=== PATIENT | male | born 1955 | race Caucasian/White ===

== ENCOUNTER 2016-11-08 08:40 | Inpatient (IN) ==
[2016-11-08] MEDS ORDERED: PANTOPRAZOLE 40 MG VIAL IV STA (09:05)
[2016-11-08] MEDS ORDERED: METOCLOPRAMIDE 10 MG/2 ML VIAL IV STA (09:05)
[2016-11-08] MEDS ORDERED: SODIUM CHLORIDE 0.9% 500 ML IV STA (09:05)
--- NOTE | 2016-11-08 09:11 | EKG Report ---
Stationary ECG Study [facility] ER Test Date: 11/08/2016 9:10:39 AM Pat Name: ZENA IRAHETA Department: Room: Gender: M Information Systems Coordinator: : 1955 Requested by: Kirk León Order Number: [id number] Reading MD: MORENITA ESPINO Intervals [place] Rate: 67 P: 65 FL: 191 QRS: 79 QRSD: 108 T: 74 QT: 393 QTc: 408 Interpretive Statements SINUS RHYTHM POSSIBLE INFERIOR MYOCARDIAL INFARCTION, PROBABLY OLD Electronically Signed On 11-12-16 17:07:19 CDT by MORENITA ESPINO [email or web address]
--- NOTE | 2016-11-08 09:11 | Emergency Department Note ---
Arrival - Arrival Chief Complaint: Syncope ED Nursing Triage Note: OUTPT SURGERY YESTERDAY FOR 3 TEETH EXTRACTED, PT HAD ? SYNCOPAL EPISODE, PT FELL INTO OR LEANED AGAINST A CABINET, PER EMS STAFF WAS UNABLE TO TELL IF PT ACTUALLY FELL TO THE FLOOR, NO OBVIOUS INJURIES, PER DETENTION STAFF PT LESS ACTIVE TODAY THAN NORMAL Mode of Arrival: Stretcher Limitations: Altered Mental Status Source: Family Time Seen by Provider: 11/08/16 09:04 - History of Present Illness HPI Narrative: This 61-year-old white male with severe brain damage secondary to complications at presents per the family with what is described to them [facility]. The patient was eating his breakfast when after completion he vomited up the meal and proceeded to rise to standing position when he apparently passed out. It is unclear if there was complete loss of consciousness although it was stated he hit his head on the floor. The patient although noncommunicative vocally he does describe by pointing that he does have some nausea and stomach pain. The patient has a notable recent history of major dental work yesterday including the extraction of 3 teeth. Because of his difficulty mentally, any cognizant history is impossible. Currently he appears in no acute distress medically other than he has a low blood pressure which is sustained since the incident. Onset (ago): hour(s) (Patient presents 2 hours post incident) Allergies/Adverse Reactions: Allergies Allergy/AdvReac Type Severity Reaction Status Date / Time No Known Allergies Allergy Unverified 11/07/16 06:33 Home Medications: Home Medications Medication Instructions Recorded Confirmed Type Cholecalciferol (Vitamin D3) 5,000 unit PO DAILY 10/15/16 11/08/16 History [Vitamin D3] Multivitamin [One Daily] 1 each PO DAILY 10/15/16 11/08/16 History Omeprazole [Prilosec] 20 mg PO DAILY 10/15/16 11/08/16 History LORazepam TAB [Ativan Tab] 1 mg PO ONCE 10/17/16 11/08/16 History Polyethylene Glycol Powder 17 gm PO BID 10/17/16 11/08/16 History [Miralax] Review of System - Review of System 12 point system: reviewed and no additional remarkable complaints except as stated - Review of System Gastrointestinal: Present: as per HPI Medical,Surgical,& Family Hx - Medical History Neurology: History of: Seizures HEENT: History of: Ear Problem (11/06/16 Sched for Dental Surgery Dr. Reeves), Eye Problem (BLIND) Gastrointestinal: History of: GERD Musculoskeletal: History of: Back/Neck Problems Other: History of: Miscellaneous Medical Problems (mental retardation r/t to series of traumas) - Surgical History Neurologic Surgeries: Surgical HX of: Neurologic Surgery (Craniotomy x2 as a baby) - Social History Smoking Status: Unknown if ever smoked Exam Physical Examination: GENERAL: Well developed, well nourished white male in no acute distress. HEENT: Normocephalic. No trauma. Moist mucous membranes. EOMI. PERRLA. ENT evidence of recent oral surgery NECK: Supple. No adenopathy. CARDIAC: Regular. No murmurs. Heart rate 73 CHEST: Clear to auscultation. No respiratory distress. O2 sat 99% ABDOMEN: Soft. Tender periumbilically with hypoactive bowel sounds. EXTREMITIES: No trauma. Normal ROM. No pedal edema. SKIN: No diaphoresis. No rash. NEURO: Alert. Noncommunicative. Full motion in all extremities with no focal deficits. Vital Signs: Vital Signs Temperature 97.0 F L 11/08/16 08:40 Pulse Rate 73 11/08/16 08:40 Respiratory Rate 16 11/08/16 08:40 Blood Pressure 85/53 11/08/16 08:40 O2 Sat by Pulse Oximetry 99 11/08/16 08:40 Course - Reevaluation(s) Reevaluation #1: Discussed with family need for hospitalization for further delineation of this individual situation. - Consultations Consultation #1: Discussed with hospitalist who will admit for further evaluation treatment. Results - Labs CBC & BMP: 11/08/16 09:05 11/08/16 09:05 Labs: I reviewed the lab and noted the mild pressure in hematocrit as well as elevated lactic acid. - Impressions EKG: Sinus rhythm at 87 with normal MO interval and QRS duration. Evidence of old inferior PA. No acute injury pattern noted. - Diagnostic Findings Procedure: Abdominal x-ray: image reviewed by me, report reviewed by me ( Nonspecific gas and feces), Chest x-ray: image reviewed by me, report reviewed by me (Normal chest), CT: image reviewed by me, report reviewed by me (Head: Chronic bilateral frontal hygromas, cerebral atrophy, prior right craniotomy, maxillary and ethmoid sinus disease.) Disposition Clinical Impression: Altered mental status, Transient hypotension, Complex advanced brain damage Case discussed with: patient's family Disposition: Still a Patient Condition: Guarded Time of Disposition: 12:09
--- NOTE | 2016-11-08 09:42 | CT Report ---
History: Syncope. Possible recent fall. History of remote brain injury Date: 11/08/2016 Study: CT head without contrast Comparison exam: No previous head CT currently available Transaxial CT sections were obtained through the head without IV contrast. Total DLP measures 1025.6 mGy*cm. This CT exam was performed using one or more the following dose reduction techniques: Automated exposure control, adjustment of the MA and/or KV according to patient size, or use of iterative reconstruction technique. There has been remote right frontoparietal craniotomy. There is no acute bony abnormality of the calvarium. There is moderate mucosal thickening in the left maxillary sinus with mild bilateral ethmoid sinus mucosal thickening as well. The mastoid air cells are clear. There is moderate cerebral atrophy, more so involving the right cerebral hemisphere as compared to the left. There is no parenchymal hemorrhage or brain mass. There is no gross CT evidence of acute cortical stroke. There is some patchy ill-defined decreased density in the periventricular white matter without mass effect compatible with changes of small vessel disease. There is some chronic subdural hygroma formation in the frontal regions bilaterally. There is no acute extra-axial hematoma. Impression: No acute intracranial process. Cerebral atrophy. Periventricular small vessel disease. Chronic bilateral frontal subdural hygroma formation. Remote craniotomy on the right. Chronic sinus disease PROCEDURE INTERPRETED AT [facility] DEPARTMENT OF RADIOLOGY Final Report Signed by: Dr. April Wallace
[2016-11-08 09:56] LABS: Basophils % 0.4 % (0.0-0.8); Eosinophils % 0.2 % (0.00-10.9); Hematocrit 35.3 VOL% (42.0-52.0); Hemoglobin 11.6 GM/DL (14.0-18.0); Immature Granulocytes % 0.6 %; Immature Granulocytes Absolute 0.05 #; Lymphocytes # 0.6 10*3/uL (1.4-4.0); Lymphocytes % 7.2 % (21.2-54.2); Mean Corpuscular HGB Conc 32.9 GM/DL (32-36); Mean Corpuscular Hemoglobin 31 PG (27-34); Mean Corpuscular Volume 95.4 FL (87-102); Mean Platelet Volume 10.3 FL (9.6-12.0); Monocytes # 0.7 10*3/uL (0.11-0.8); Monocytes % 8.7 % (1.7-12.7); Neutrophils # 6.9 10*3/uL (1.4-7.4); Neutrophils % 82.9 % (38.7-73.9); Platelet Count 150 T/CUMM (130-400); Red Cell Distribution Width 13.2 % (9.3-17.3); White Blood Count 8.4 T/CUMM (4-12)
--- NOTE | 2016-11-08 10:02 | XRay Report ---
History: Nausea, vomiting, diarrhea Date: 11/08/2016 Study: Flat and decubitus abdomen Comparison exam: Abdominal x-ray September 01, 2016 There is no evidence of pneumoperitoneum. The bowel gas pattern is nonspecific without jorgito mechanical obstruction. There is a moderate amount of stool in the colon, including a moderate amount of stool of the rectum. A phlebolith overlies the left hemipelvis. There is mild lumbar spondylosis. Impression: Nonspecific bowel gas pattern without jorgito obstruction PROCEDURE INTERPRETED AT [facility] DEPARTMENT OF RADIOLOGY Final Report Signed by: Dr. April Wallace
[2016-11-08 10:06] LABS: INR 1.1; PT Patient Result 12.1 SECS
--- NOTE | 2016-11-08 10:08 | XRay Report ---
History: Shortness of breath Date: 11/08/2016 Study: Chest x-ray single view portable Comparison exam: No previous chest x-ray available for comparison The cardiac silhouette is borderline to mildly prominent. There is no mediastinal mass. The pulmonary vasculature is not engorged. The lungs and pleural spaces are generally clear for shallow breath. There is a calcified right hilar lymph node. There is no acute osseous abnormality. Impression: No acute cardiopulmonary process. Shallow breath PROCEDURE INTERPRETED AT [facility] DEPARTMENT OF RADIOLOGY Final Report Signed by: Dr. April Wallace
[2016-11-08 10:29] LABS: Alanine Aminotransferase 20 U/L (16-61); Albumin 2.9 G/DL (3.4-5.0); Alkaline Phosphatase 57 U/L (45-117); Amylase 101 U/L (25-115); Aspartate Amino Transferase 20 U/L (0-37); Blood Urea Nitrogen 26 MG/DL (7-18); Calcium 8.2 MG/DL (8.5-10.1); Glucose 107 MG/DL (74-106); Osmolality,Calculated 281.5 MOS/KG (273-304); Potassium 3.7 MMOL/L (3.5-5.1); Sodium 139 MMOL/L (136-145); Troponin I Only < 0.015 NG/ML (0.00-0.045)
[2016-11-08] MEDS ORDERED: METOCLOPRAMIDE 10 MG/2 ML VIAL ONE (10:30)
[2016-11-08] MEDS ORDERED: PANTOPRAZOLE 40 MG VIAL IV ONE (10:30)
[2016-11-08 10:51] LABS: Lactic Acid 2.4 MMOL/L (0.4-2.0)
[2016-11-08 11:42] LABS: Amorphous Crystals,Urine Few /HPF (Few); Apearance,Urine CLOUDY (Clear); Bacteria,Urine Occasional /HPF (Few); Bilirubin,Urine Negative (Negative); Blood, Urine Negative (Negative); Glucose,Urine (UA) Negative (Negative); Hyaline Casts,Urine 3 /LPF (0-3); Ketones,Urine Negative (Negative); Mucus,Urine Occasional /LPF (Occasional); Nitrite,Urine Negative (Negative); Protein,Urine Negative; Sperm,Urine Occasional /HPF (Negative); Squamous Epithelial Cell,Urine Occasional /HPF (0-10); Urine Color Yellow (Yellow); Urine Specific Gravity 1.009 (1.001-1.035); Urine Urobilinogen < 2.0 EU/DL (0.2-1.0); WBC,Urine 1 /HPF (0-6)
[2016-11-08] MEDS ORDERED: ONDANSETRON 4 MG/2 ML VIAL IV PRN (12:26)
[2016-11-08] MEDS ORDERED: SODIUM CHLORIDE 0.9% 1,000 ML IV SCH (12:30)
[2016-11-08] MEDS ORDERED: ENOXAPARIN 40 MG/0.4 ML SYRINGE SUBCUT SCH (12:30)
--- NOTE | 2016-11-08 12:31 | Hospitalist History & Physical ---
<Sherri Owensda - Last Filed: 11/08/16 13:04> Assessment and Plan (1) Altered mental status, unspecified Status: Acute Assessment and plan: We will admit. Will perform syncope work-up, hydrate, and initiate seizure precautions. (2) Seizures Status: Acute Assessment and plan: Initiate seizure precautions, ativan PRN. Current Visit: Yes (3) Status post tooth extraction Status: Acute Assessment and plan: We will assess and medicate as needed. Will start Clindamycin prophylactically. Current Visit: Yes History of Present Illness Chief complaint: "syncope" History of present illness: This is a 61 year old male that presented to the ED today with a chief compliant of "syncope" and fall. He has a medical history of visual loss, acquired brain injury,seizure disorder, GERD, and mental retardation. The patient underwent recent multiple tooth extractions on yesterday by Dr. Leandro donato at [facility] surgery. The extractions were uneventful. The patient recovered well and was discharged back to his halfway. Apparently, the patient was eaten breakfast and wast attempting to leave the table when this occurred. The family was informed by the nursing staff that when the patient went to stand up he started to vomit and "passed out ". In addition, they reported that the patient did strike his head on the floor ; however they are unsure if an actual loss of consciouness occured. In addition , the family reported that staff informed them that the patient had behavioral issues on yesterday. They are concerned that the patient has remained altered; which is a not his baseline. The patient was assessed. Labs and chest radiograph were essentially unremarkable. CT scan of head revealed chronic bilateral frontal hygromas, cerebral atrophy, prior right craniotomy, maxillary and ethmoid sinus disease. Abdominal xray suggested nonspecific gas and feces. After discussion with Dr. Segovia and Dr. Lane, the patient will be admitted for continuation of care. Home Medications Medication Instructions Recorded Confirmed Type Cholecalciferol (Vitamin D3) 5,000 unit PO DAILY 10/15/16 11/08/16 History [Vitamin D3] Multivitamin [One Daily] 1 each PO DAILY 10/15/16 11/08/16 History Omeprazole [Prilosec] 20 mg PO DAILY 10/15/16 11/08/16 History LORazepam TAB [Ativan Tab] 1 mg PO ONCE 10/17/16 11/08/16 History Polyethylene Glycol Powder 17 gm PO BID 10/17/16 11/08/16 History [Miralax] Allergies Allergy/AdvReac Type Severity Reaction Status Date / Time No Known Allergies Allergy Unverified 11/07/16 06:33 Medical,Surgical,& Family Hx - Medical History Neurology: History of: Seizures HEENT: History of: Ear Problem (11/06/[address] Sched [address] Dental Surgery Dr. Reeves), Eye Problem (BLIND) Gastrointestinal: History of: GERD Musculoskeletal: History of: Back/Neck Problems Other: History of: Miscellaneous Medical Problems (mental retardation r/t to series of traumas) - Surgical History Neurologic Surgeries: Surgical HX of: Neurologic Surgery (Craniotomy x2 as a baby) - Social History Smoking Status: Unknown if ever smoked ROS unobtainable: due to mental status Exam - Constitutional Vitals: Period Temp Pulse Resp BP Sys/T[place]ilver Pulse Ox Last 24 Hr 97.0 F 73 16 85/53 99 General appearance: normal weight, mild distress - Head Head exam: Present: normal inspection, normocephalic, atraumatic - Eye Eye exam: Present: EOMI. Absent: conjunctival injection, nystagmus, periorbital swelling, scleral icterus Pupils: Present: PETER, normal accommodation - ENT ENT exam: Present: normal exam, normal external ear exam, normal oropharynx - Neck Neck exam: Present: normal inspection. Absent: lymphadenopathy, meningismus, tenderness, thyromegaly - Respiratory Respiratory exam: Present: clear to auscultation bilaterally. Absent: rales, rhonchi, stridor, wheezes - Cardiovascular Cardiovascular exam: Present: regular rate and rhythm. Absent: carotid bruit, diastolic murmur, gallop, JVD, rubs, systolic murmur - GI/Abdominal GI/Abdominal exam: Present: tenderness, soft - Extremities Exam Extremities exam: Present: normal inspection, normal capillary refill, full ROM - Back Exam Back exam: Present: normal inspection - Neurological Exam Neurological exam: Present: alert, altered, other (non-verbal) - Psychiatric Psychiatric exam: Present: normal affect, normal mood - Skin Skin exam: Present: normal color, warm, dry Results - Labs CBC & BMP: 11/08/16 09:05 11/08/16 09:05 Lab Results: I have reviewed the past 24 hour labs <James Lane - Last Filed: 11/08/16 15:48> History of Present Illness History of present illness: Mr. Dillon is a 61 year old male Personally seen this patient patient was examined in the emergency room as well as in the room of tachypnea. The patient came to the hospital with a syncopal episode with a history of "" seizures for which she is only taking Ativan. I am not certain whether this is feet seizures however when I came into the room is sleeping a cannot wake him up. I agree with all the documentation that is above we will continue with the recommendations as he also chimed in by the neurologist. Observe the patient at this time patient should be on telemetry just and also chance he gets arrhythmias. Exam - Constitutional Vitals: Period Temp Pulse Resp BP Sys/Tolliver Pulse Ox Last 24 Hr 97 F-98.4 F 13-77 16-18 85-113/53-66 97 Results - Labs CBC & BMP: 11/08/16 09:05 11/08/16 09:05
[2016-11-08] MEDS ORDERED: CLINDAMYCIN INJ 600 MG in PREMIX 1 EACH IV ONE (13:07)
[2016-11-08] MEDS ORDERED: LORazepam 2 MG/1 ML VIAL IV PRN (13:07)
--- NOTE | 2016-11-08 14:00 | Neurology Consult Note ---
History of Present Illness History of present illness: Patient is unable to provide me any history. History basically obtained from the chart and the caregiver. This is a 61 year old white gentleman with past medical history of visual loss, acquired brain injury,seizure disorder, GERD, and mental retardation that presented to the ED today with a chief compliant of "syncope" and fall. The patient underwent recent multiple tooth extractions yesterday at [facility] Outpatient surgery. The extractions were uneventful. The patient recovered well and was discharged back to his long term. Apparently, the patient was eaten breakfast and wast attempting to leave the table when this occurred. The family was informed by the nursing staff that when the patient went to stand up he started to vomit and "passed out" and possibly hit his head on the floor. It is not clear whether he completely went out or not. In addition, the family reported that staff informed them that the patient had behavioral issues on yesterday. They are concerned that the patient has remained altered; which is a not his baseline. CT scan of head revealed chronic bilateral frontal hygromas, cerebral atrophy, prior right craniotomy, maxillary and ethmoid sinus disease. Caregiver reported that patient is pretty much back to his baseline at this point. Home Medications Medication Instructions Recorded Confirmed Type Cholecalciferol (Vitamin D3) 5,000 unit PO DAILY 10/15/16 11/08/16 History [Vitamin D3] Multivitamin [One Daily] 1 each PO DAILY 10/15/16 11/08/16 History Omeprazole [Prilosec] 20 mg PO DAILY 10/15/16 11/08/16 History LORazepam TAB [Ativan Tab] 1 mg PO ONCE 10/17/16 11/08/16 History Polyethylene Glycol Powder 17 gm PO BID 10/17/16 11/08/16 History [Miralax] Allergies Allergy/AdvReac Type Severity Reaction Status Date / Time No Known Allergies Allergy Unverified 11/07/16 06:33 12 point system: reviewed and no additional remarkable complaints except as stated Medical,Surgical,& Family Hx - Medical History Neurology: History of: Seizures HEENT: History of: Ear Problem (11/06/16 Sched for Dental Surgery Dr. Reeves), Eye Problem (BLIND) Gastrointestinal: History of: GERD Musculoskeletal: History of: Back/Neck Problems Other: History of: Miscellaneous Medical Problems (mental retardation r/t to series of traumas) - Surgical History Neurologic Surgeries: Surgical HX of: Neurologic Surgery (Craniotomy x2 as a baby) - Social History Smoking Status: Unknown if ever smoked Exam - Constitutional Vitals: Period Temp Pulse Resp BP Sys/Tolliver Pulse Ox Last 24 Hr 97 F-98.4 F 13-77 16-18 85-113/53-66 97 Exam: GENERAL: Patient is in no acute distress. NECK: Neck is supple. There is no JVD. No carotid bruits present. No thyroid masses. CVS: First and second heart sounds are normal. There is no S3 present. Regular rate and rhythm. RESPIRATORY: Lungs are clear to auscultation without any rales or rhonchi. ABDOMEN: Soft and non-tender. Bowel sounds are present. There is no hepatosplenomegaly. EXT: There is no palpable edema. Peripheral pulses are present. Skin: No rashes Central Nervous system: General: Alert, awake, following very simple commands Speech: None Comprehension: Fair Facial expressions: Normal Cranial Nerves: Pupils are equally reactive to light. Extraocular movements are intact. No facial asymmetry is seen. Motor: Bulk and Tone is normal. Strength symmetrical Sensory: Cannot be assessed. Reflexes: 1+ and symmetrical Cerebellar function: Cannot be assessed Toes: Equivocal Gait: Not assessed at this time Results - Labs CBC & BMP: 11/08/16 09:05 11/08/16 09:05 Assessment and Plan (1) Near syncope Status: Acute Assessment and plan: It could be multifactorial. I do not see any clear evidence of a stroke, TIAs, epilepsy or seizure. It is in the history that patient had a history of seizure however he is not on any seizure medication either. It looks like patient is back to his baseline as per long term caregiver. We will continue watchful observation at this time. Thank you for the count Current Visit: Yes
[2016-11-09 04:35] LABS: Basophils % 0.4 % (0.0-0.8); Eosinophils # 0.1 10*3/uL (0.0-0.87); Eosinophils % 1.8 % (0.00-10.9); Hematocrit 29.7 VOL% (42.0-52.0); Hemoglobin 9.9 GM/DL (14.0-18.0); Immature Granulocytes % 0.1 %; Immature Granulocytes Absolute 0.01 #; Lymphocytes # 1.8 10*3/uL (1.4-4.0); Lymphocytes % 26.2 % (21.2-54.2); Mean Corpuscular HGB Conc 33.3 GM/DL (32-36); Mean Corpuscular Hemoglobin 31 PG (27-34); Mean Corpuscular Volume 92.5 FL (87-102); Mean Platelet Volume 10.5 FL (9.6-12.0); Monocytes # 0.8 10*3/uL (0.11-0.8); Neutrophils % 59.5 % (38.7-73.9); Platelet Count 142 T/CUMM (130-400); Red Blood Count 3.21 MC/CUMM (3.8-5.5); Red Cell Distribution Width 13.4 % (9.3-17.3); White Blood Count 6.7 T/CUMM (4-12)
[2016-11-09 05:35] LABS: Albumin 2.6 G/DL (3.4-5.0); Bilirubin,Total 0.9 MG/DL (0.2-1.0); Calcium 7.9 MG/DL (8.5-10.1); Magnesium 1.8 MG/DL (1.8-2.4); Potassium 4.1 MMOL/L (3.5-5.1); Risk Ratio 2.29; Thyroid Stimulating Hormone 0.652 uIU/ml (0.358-3.74); Total Protein 5.2 G/DL (6.4-8.3)
[2016-11-09] MEDS ORDERED: PANTOPRAZOLE 40 MG TABLET PO SCH (09:00)
[2016-11-09] MEDS ORDERED: PANTOPRAZOLE 40 MG VIAL IV SCH (09:00)
--- NOTE | 2016-11-09 09:57 | Discharge Summary ---
Hospital Course - Hospital Course Hospital Course: This is a 61 year old male that presented to the ED at [facility] on 11/08 with a chief compliant of "syncope" and fall. He has a medical history of visual loss, acquired brain injury,seizure disorder, GERD, and mental retardation. The patient underwent recent multiple tooth extractions on 11/[address] Leandro solo at [facility] Outpatient surgery. The extractions were uneventful. The patient recovered well and was [facility] to his [facility]. Apparently, the patient was eating breakfast at the [facility] on yesterday. He was attempting to leave the table when the presenting episode occurred. The family was informed by the nursing staff that when the patient went to stand up he started to vomit and "passed out ". In addition, they reported that the patient did strike his head on the floor ; however they are unsure if an actual loss of consciousness occurred. In addition, the family reported that staff informed them that the patient had behavioral issues on yesterday. They are concerned that the patient has remained altered; which is a not his baseline. The patient was assessed. Labs and chest radiograph were essentially unremarkable. CT scan of head revealed chronic bilateral frontal hygromas, cerebral atrophy, prior right craniotomy, maxillary and ethmoid sinus disease. Abdominal xray suggested nonspecific gas and feces. After discussion with Dr. Segovia and Dr. Lane, the patient was admitted for further evaluation. The patient was admitted and re-hydrated. A neurology consult was requested. The patient was seen and evaluated per Neurology. They concluded that the source of his "syncope"could be multifactorial. In addition, Neurology concluded that there was no clear evidence of any neurological events such as cerebral vascular accident, transient ischemic attack, epilepsy, or seizure. The patient's mentation has improved. According to [facility] staff who are present at bedside; he has returned to his baseline. His condition is stable. Today, we feel that his condition has improved. He is appropriate for discharge back to his group with follow-up with his PCP as indicated. Diagnosis - Discharge Diagnosis (1) Altered mental status, unspecified Status: Acute (2) Seizures Status: Acute (3) Status post tooth extraction Status: Acute Discharge Plan - Discharge Medications No Action Multivitamin [One Daily] 1 each PO DAILY Cholecalciferol (Vitamin D3) [Vitamin D3] 5,000 unit PO DAILY Omeprazole [Prilosec] 20 mg PO DAILY Polyethylene Glycol Powder [Miralax] 17 gm PO BID LORazepam TAB [Ativan Tab] 1 mg PO ONCE - Follow Up or Referral - Forms/Instructions Exam - Constitutional Vitals: Period Temp Pulse Resp BP Sys/Tolliver Pulse Ox Last 24 Hr 97 F-99.4 F 13-90 16-20 85-149/53-89 96-99 Discharge Results Labs on day of discharge: Labs from last 24 hours 11/09/16 11/09/16 04:12 04:12 WBC 6.7 RBC 3.21 L Hgb 9.9 L Hct 29.7 L MCV 92.5 MCH 31 MCHC 33.3 RDW 13.4 Plt Count 142 MPV 10.5 Neut % (Auto) 59.5 Lymph % (Auto) 26.2 Kimble % (Auto) 12.0 Eos % (Auto) 1.8 Baso % (Auto) 0.4 Neut # (Auto) 4.0 Lymph # (Auto) 1.8 Kimble # (Auto) 0.8 Eos # (Auto) 0.1 Baso # (Auto) 0.0 Immature Gran % 0.1 Nucleated RBC % 0.0 Immature Gran # 0.01 Nucleated RBCs # 0.00 Sodium 143 Potassium 4.1 Chloride 112 H Carbon Dioxide 23 Anion Gap 12.1 BUN 21 H Creatinine 0.90 GFR Calculation 93 BUN/Creatinine Ratio 23.00 H Glucose 83 Calculated Osmolality 286.0 Calcium 7.9 L Magnesium 1.8 Total Bilirubin 0.90 AST 18 ALT 17 Alkaline Phosphatase 46 Total Protein 5.2 L Albumin 2.6 L Globulin 2.6 Albumin/Globulin Ratio 1.0 L Triglycerides 70 Cholesterol 135 LDL Cholesterol 68.0 VLDL Cholesterol 14.0 HDL Cholesterol 59 Heart Disease Risk Ratio 2.29 TSH 3rd Generation 0.652 DS: Provider Date of admission: 11/08/16 12:23 Primary care physician: . No PCP Attending physician on admission: James Lane MD Consults: 11/08/16 12:26 Consult to Physician [CONS] Routine Comment: Consulting Provider: Ray Morgan When should Consulting Provider be notified: Now Person Notified: Dr. morgan Date Notified: 11/08/16 Time Notified: 13:51 11/08/16 12:30 Consult to Pharmacy [CONS] Routine Reason for Pharmacy Consult: Adjust Meds Renal Funct 11/08/16 13:46 Consult to Pastoral Services [CONS] Routine Comment: Pastoral Screen: Declines Visit Pastoral Screen Source of Request: Patient Discharging clinician: Jamie Owens CNP
--- NOTE | 2016-11-09 10:29 | Discharge Summary ---
Hospital Course - Hospital Course Hospital Course: Hospital Course - Hospital Course Hospital Course: This is a 61 year old male that presented to the ED at [facility] on 11/08 with a chief compliant of "syncope" and fall. He has a medical history of visual loss, acquired brain injury,seizure disorder, GERD, and mental retardation. The patient underwent recent multiple tooth extractions on 11/[address] Leandro solo at [facility] Outpatient surgery. The extractions were uneventful. The patient recovered well and was discharged back to his assisted. Apparently, the patient was eating breakfast at the assisted on yesterday. He was attempting to leave the table when the presenting episode occurred. The family was informed by the nursing staff that when the patient went to stand up he started to vomit and "passed out ". In addition, they reported that the patient did strike his head on the floor ; however they are unsure if an actual loss of consciousness occurred. In addition, the family reported that staff informed them that the patient had behavioral issues on yesterday. They are concerned that the patient has remained altered; which is a not his baseline. The patient was assessed. Labs and chest radiograph were essentially unremarkable. CT scan of head revealed chronic bilateral frontal hygromas, cerebral atrophy, prior right craniotomy, maxillary and ethmoid sinus disease. Abdominal xray suggested nonspecific gas and feces. After discussion with Dr. Segovia and Dr. Lane, the patient was admitted for further evaluation. The patient was admitted and re-hydrated. A neurology consult was requested. The patient was seen and evaluated per Neurology. They concluded that the source of his "syncope"could be multifactorial. In addition, Neurology concluded that there was no clear evidence of any neurological events such as cerebral vascular accident, transient ischemic attack, epilepsy, or seizure. The patient's mentation has improved. According to assisted staff who are present at bedside; he has returned to his baseline. His condition is stable. Today, we feel that his condition has improved. He is appropriate for discharge back to his group with follow-up with his PCP as indicated. Diagnosis - Discharge Diagnosis (1) Altered mental status, unspecified Status: Acute (2) Seizures Status: Acute (3) Status post tooth extraction Status: Acute Discharge Plan - Discharge Medications No Action Multivitamin [One Daily] 1 each PO DAILY Cholecalciferol (Vitamin D3) [Vitamin D3] 5,000 unit PO DAILY Omeprazole [Prilosec] 20 mg PO DAILY Polyethylene Glycol Powder [Miralax] 17 gm PO BID LORazepam TAB [Ativan Tab] 1 mg PO ONCE - Follow Up or Referral - Forms/Instructions Exam - Constitutional Vitals: Period Temp Pulse Resp BP Sys/Tolliver Pulse Ox Last 24 Hr 97 F-99.4 F 13-90 16-20 85-149/53-89 96-99 Discharge Results Labs on day of discharge: Labs from last 24 hours 11/09/16 11/09/16 04:12 04:12 WBC 6.7 RBC 3.21 L Hgb 9.9 L Hct 29.7 L MCV 92.5 MCH 31 MCHC 33.3 RDW 13.4 Plt Count 142 MPV 10.5 Neut % (Auto) 59.5 Lymph % (Auto) 26.2 Florence % (Auto) 12.0 Eos % (Auto) 1.8 Baso % (Auto) 0.4 Neut # (Auto) 4.0 Lymph # (Auto) 1.8 Florence # (Auto) 0.8 Eos # (Auto) 0.1 Baso # (Auto) 0.0 Immature Gran % 0.1 Nucleated RBC % 0.0 Immature Gran # 0.01 Nucleated RBCs # 0.00 Sodium 143 Potassium 4.1 Chloride 112 H Carbon Dioxide 23 Anion Gap 12.1 BUN 21 H Creatinine 0.90 GFR Calculation 93 BUN/Creatinine Ratio 23.00 H Glucose 83 Calculated Osmolality 286.0 Calcium 7.9 L Magnesium 1.8 Total Bilirubin 0.90 AST 18 ALT 17 Alkaline Phosphatase 46 Total Protein 5.2 L Albumin 2.6 L Globulin 2.6 Albumin/Globulin Ratio 1.0 L Triglycerides 70 Cholesterol 135 LDL Cholesterol 68.0 VLDL Cholesterol 14.0 HDL Cholesterol 59 Heart Disease Risk Ratio 2.29 TSH 3rd Generation 0.652 DS: Provider Date of admission: 11/08/16 12:23 Primary care physician: . No PCP Attending physician on admission: James Lane MD Consults: 11/08/16 12:26 Consult to Physician [CONS] Routine Comment: Consulting Provider: Ray Morgan When should Consulting Provider be notified: Now Person Notified: Dr. morgan Date Notified: 11/08/16 Time Notified: 13:51 11/08/16 12:30 Consult to Pharmacy [CONS] Routine Reason for Pharmacy Consult: Adjust Meds Renal Funct 11/08/16 13:46 Consult to Pastoral Services [CONS] Routine Comment: Pastoral Screen: Declines Visit Pastoral Screen Source of Request: Patient Discharging clinician: Jamie Owens CNP Discharge Plan - Discharge Data Disposition: Disch/Xfer to Snf Condition at Discharge: Stable Discharge Diet: heart healthy Activity: resume usual activities as tolerated Hygiene: no restrictions Weight Bearing at Discharge: weight bear as tolerated Driving: other (No driving) Contact your physician if you experience:: fever over 101, Shortness of breath - Discharge Medications Continue Multivitamin [One Daily] 1 each PO DAILY Cholecalciferol (Vitamin D3) [Vitamin D3] 5,000 unit PO DAILY Omeprazole [Prilosec] 20 mg PO DAILY Polyethylene Glycol Powder [Miralax] 17 gm PO BID LORazepam TAB [Ativan Tab] 1 mg PO ONCE - Follow Up or Referral - Forms/Instructions Exam - Constitutional Vitals: Period Temp Pulse Resp BP Sys/Tolliver Pulse Ox Last 24 Hr 97 F-99.4 F 13- 16-20 85-149/53-89 96-99 General appearance: normal weight - Head Head exam: Present: normocephalic, atraumatic - Eye Eye exam: Present: EOMI Pupils: Present: PETER - ENT ENT exam: Present: normal exam - Neck Neck exam: Present: normal inspection - Respiratory Respiratory exam: Present: clear to auscultation bilaterally - Cardiovascular Cardiovascular exam: Present: regular rate and rhythm - GI/Abdominal GI/Abdominal exam: Present: normal bowel sounds, soft - Extremities Exam Extremities exam: Present: full ROM, other (Normal capillary refill) - Neurological Exam Neurological exam: Present: alert, oriented X3, CN II-XII intact, other (Poor cognitive output 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 ) - Psychiatric Psychiatric exam: Present: other (Baseline) - Skin Skin exam: Present: normal color, warm, dry Discharge Results Labs on day of discharge: Labs from last 24 hours 11/09/16 11/09/16 04:12 04:12 WBC 6.7 RBC 3.21 L Hgb 9.9 L Hct 29.7 L MCV 92.5 MCH 31 MCHC 33.3 RDW 13.4 Plt Count 142 MPV 10.5 Neut % (Auto) 59.5 Lymph % (Auto) 26.2 Florence % (Auto) 12.0 Eos % (Auto) 1.8 Baso % (Auto) 0.4 Neut # (Auto) 4.0 Lymph # (Auto) 1.8 Florence # (Auto) 0.8 Eos # (Auto) 0.1 Baso # (Auto) 0.0 Immature Gran % 0.1 Nucleated RBC % 0.0 Immature Gran # 0.01 Nucleated RBCs # 0.00 Sodium 143 Potassium 4.1 Chloride 112 H Carbon Dioxide 23 Anion Gap 12.1 BUN 21 H Creatinine 0.90 GFR Calculation 93 BUN/Creatinine Ratio 23.00 H Glucose 83 Calculated Osmolality 286.0 Calcium 7.9 L Magnesium 1.8 Total Bilirubin 0.90 AST 18 ALT 17 Alkaline Phosphatase 46 Total Protein 5.2 L Albumin 2.6 L Globulin 2.6 Albumin/Globulin Ratio 1.0 L Triglycerides 70 Cholesterol 135 LDL Cholesterol 68.0 VLDL Cholesterol 14.0 HDL Cholesterol 59 Heart Disease Risk Ratio 2.29 TSH 3rd Generation 0.652 DS: Provider Date of admission: 11/08/16 12:23 Primary care physician: . No PCP Attending physician on admission: James Lane MD Consults: 11/08/16 12:26 Consult to Physician [CONS] Routine Comment: Consulting Provider: Ray Morgan When should Consulting Provider be notified: Now Person Notified: Dr. morgan Date Notified: 11/08/16 Time Notified: 13:51 11/08/16 12:30 Consult to Pharmacy [CONS] Routine Reason for Pharmacy Consult: Adjust Meds Renal Funct 11/08/16 13:46 Consult to Pastoral Services [CONS] Routine Comment: Pastoral Screen: Declines Visit Pastoral Screen Source of Request: Patient Discharging clinician: James Lane MD
[2016-11-09 11:40] VITALS: BP 146/82
== END 2016-11-09 12:31 | disposition home or self-care (01) | DRG 312 ==
LOC: EDBD → EDUNIT# → N.ED 08:40 → N.EDINP 12:23 → N.2E 13:00
PROVIDERS: ADMIT Internal Medicine Infectious Disease; ATTEND Internal Medicine Infectious Disease

== ENCOUNTER 2018-07-22 14:27 | Inpatient (IN) ==
[2018-07-22 16:35] LABS: Apearance,Urine CLEAR (Clear); Bacteria,Urine Occasional /HPF (Few); Bilirubin,Urine Negative (Negative); Blood, Urine Negative (Negative); Glucose,Urine (UA) Negative (Negative); Hyaline Casts,Urine 1 /LPF (0-3); Ketones,Urine Negative (Negative); Mucus,Urine Occasional /LPF (Occasional); Nitrite,Urine Negative (Negative); Protein,Urine Negative; RBC,Urine 1 /HPF (0-4); Urine Color Yellow (Yellow); Urine Urobilinogen < 2.0 EU/DL (0.2-1.0); WBC,Urine <1 /HPF (0-6)
[2018-07-22 17:07] LABS: Basophils # 0.1 10*3/uL (0.0-0.2); Basophils % 1.1 % (0.0-0.8); Eosinophils # 0.2 10*3/uL (0.0-0.87); Eosinophils % 3.9 % (0.00-10.9); Hematocrit 35.7 VOL% (42.0-52.0); Hemoglobin 11.9 GM/DL (14.0-18.0); Immature Granulocytes % 0.2 %; Immature Granulocytes Absolute 0.01 #; Lymphocytes # 1.8 10*3/uL (1.4-4.0); Lymphocytes % 33.6 % (21.2-54.2); Mean Corpuscular HGB Conc 33.3 GM/DL (32-36); Mean Corpuscular Hemoglobin 31 PG (27-34); Mean Corpuscular Volume 93.9 FL (87-102); Mean Platelet Volume 10.7 FL (9.6-12.0); Monocytes # 0.6 10*3/uL (0.11-0.8); Monocytes % 10.8 % (1.7-12.7); Neutrophils # 2.7 10*3/uL (1.4-7.4); Neutrophils % 50.4 % (38.7-73.9); Platelet Count 192 T/CUMM (130-400); Red Cell Distribution Width 13.2 % (9.3-17.3); White Blood Count 5.4 T/CUMM (4-12)
[2018-07-22 17:33] LABS: Albumin 3.8 G/DL (3.4-5.0); Bilirubin,Total 0.5 MG/DL (0.2-1.0); Calcium 8.7 MG/DL (8.5-10.1); Osmolality,Calculated 275.7 MOS/KG (273-304); Potassium 4.2 MMOL/L (3.5-5.1); Total Protein 7.3 G/DL (6.4-8.3)
[2018-07-22] MEDS: ENOXAPARIN 40 MG/0.4 ML SYRINGE SUBCUT SCH (22:20)
[2018-07-22] MEDS: SODIUM CHLORIDE 0.9% 1,000 ML IV SCH (22:30)
[2018-07-22] MEDS: ZIPRASIDONE 20 MG/1 ML VIAL IM PRN (22:53)
[2018-07-23] MEDS: SODIUM CHLORIDE 0.9% 1,000 ML IV SCH ×4 (03:50→22:21)
[2018-07-23 05:35] LABS: Basophils # 0.1 10*3/uL (0.0-0.2); Basophils % 1.1 % (0.0-0.8); Eosinophils # 0.2 10*3/uL (0.0-0.87); Eosinophils % 4.8 % (0.00-10.9); Hematocrit 33.9 VOL% (42.0-52.0); Hemoglobin 11.2 GM/DL (14.0-18.0); Immature Granulocytes % 0.2 %; Immature Granulocytes Absolute 0.01 #; Lymphocytes # 1.4 10*3/uL (1.4-4.0); Lymphocytes % 31.1 % (21.2-54.2); Mean Corpuscular Hemoglobin 31 PG (27-34); Mean Corpuscular Volume 94.4 FL (87-102); Mean Platelet Volume 10.6 FL (9.6-12.0); Monocytes # 0.5 10*3/uL (0.11-0.8); Monocytes % 12.3 % (1.7-12.7); Neutrophils # 2.2 10*3/uL (1.4-7.4); Neutrophils % 50.5 % (38.7-73.9); Platelet Count 168 T/CUMM (130-400); Red Blood Count 3.59 MC/CUMM (3.8-5.5); Red Cell Distribution Width 13.1 % (9.3-17.3); White Blood Count 4.4 T/CUMM (4-12)
[2018-07-23 05:58] LABS: Calcium 8.4 MG/DL (8.5-10.1); Osmolality,Calculated 280.3 MOS/KG (273-304); Potassium 3.9 MMOL/L (3.5-5.1)
[2018-07-23] MEDS ORDERED: LIDOCAINE 2% 5 ML VIAL ONE (10:54)
[2018-07-23] MEDS ORDERED: PROPOFOL 200 MG/20 ML VIAL IV ONE ×2 (10:54→17:07)
[2018-07-23] MEDS ORDERED: metroNIDAZOLE INJ 500 MG in PREMIX 1 EACH IV ONE (11:44)
[2018-07-23] MEDS: ZIPRASIDONE 20 MG/1 ML VIAL IM PRN ×2 (11:50→18:08)
[2018-07-23] MEDS ORDERED: LIDOCAINE 1%/EPI INJ 20 ML VIAL ONE (12:11)
[2018-07-23] MEDS ORDERED: TISSUE ADHESIVE 1 EACH APPLICATOR TOP ONE (12:12)
[2018-07-23] MEDS ORDERED: ROPIVACAINE 0.5% 30 ML VIAL ONE (16:09)
[2018-07-23] MEDS ORDERED: fentaNYL 100 MCG/2 ML VIAL ONE ×2 (17:08→17:22)
[2018-07-23] MEDS ORDERED: SEVOFLURANE 1 UNIT/15 MINUTE INH ONE (17:08)
[2018-07-23] MEDS ORDERED: MIDAZOLAM 2 MG/2 ML VIAL ONE (17:08)
[2018-07-23] MEDS ORDERED: PHENYLEPHRINE 1 MG/10 ML SYRINGE IV ONE (17:10)
[2018-07-23] MEDS ORDERED: GLYCOPYRROLATE 0.4 MG/2 ML VIAL ONE (17:10)
[2018-07-23] MEDS ORDERED: ROCURONIUM 100 MG/10 ML VIAL IV ONE (17:10)
[2018-07-23] MEDS ORDERED: ONDANSETRON 4 MG/2 ML VIAL ONE (17:10)
[2018-07-23] MEDS ORDERED: NEOSTIGMINE 10 MG/10 ML VIAL ONE (17:10)
[2018-07-23] MEDS ORDERED: fentaNYL 100 MCG/2 ML VIAL IV ONE (18:09)
[2018-07-23 18:10] LABS: Apearance,Urine CLEAR (Clear); Bilirubin,Urine Negative (Negative); Blood, Urine Negative (Negative); Glucose,Urine (UA) Negative (Negative); Ketones,Urine Negative (Negative); Nitrite,Urine Negative (Negative); Protein,Urine Negative; RBC,Urine 1 /HPF (0-4); Urine Color Yellow (Yellow); Urine Specific Gravity 1.016 (1.001-1.035); Urine Urobilinogen < 2.0 EU/DL (0.2-1.0); WBC,Urine 1 /HPF (0-6)
[2018-07-23] MEDS: ENOXAPARIN 40 MG/0.4 ML SYRINGE SUBCUT SCH (20:05)
[2018-07-24] MEDS: HYDROmorphone 2 MG/1 ML VIAL IV PRN ×2 (03:30→21:15)
[2018-07-24] MEDS: SODIUM CHLORIDE 0.9% 1,000 ML IV SCH (06:19)
[2018-07-24 06:22] LABS: Basophils % 0.1 % (0.0-0.8); Hematocrit 33.5 VOL% (42.0-52.0); Hemoglobin 10.8 GM/DL (14.0-18.0); Immature Granulocytes % 0.4 %; Immature Granulocytes Absolute 0.04 #; Lymphocytes # 0.3 10*3/uL (1.4-4.0); Lymphocytes % 3.3 % (21.2-54.2); Mean Corpuscular HGB Conc 32.2 GM/DL (32-36); Mean Corpuscular Hemoglobin 31 PG (27-34); Mean Corpuscular Volume 95.7 FL (87-102); Mean Platelet Volume 10.7 FL (9.6-12.0); Monocytes # 0.5 10*3/uL (0.11-0.8); Monocytes % 5.4 % (1.7-12.7); Neutrophils # 8.1 10*3/uL (1.4-7.4); Neutrophils % 90.8 % (38.7-73.9); Platelet Count 157 T/CUMM (130-400); Red Cell Distribution Width 13.2 % (9.3-17.3); White Blood Count 8.9 T/CUMM (4-12)
[2018-07-24 06:43] LABS: Albumin 2.5 G/DL (3.4-5.0); Osmolality,Calculated 283.4 MOS/KG (273-304); Potassium 4.3 MMOL/L (3.5-5.1); Total Protein 5.7 G/DL (6.4-8.3)
[2018-07-24 06:54] LABS: Band Neutrophils 1 % (0-10); Lymphocytes 7 % (20-55); Metamyelocytes 1 %; Platelet Estimate Decreased; Polychromasia Few; Segmented Neutrophils 90 % (50-85); Total Cells Counted 100
[2018-07-24] MEDS: ZIPRASIDONE 20 MG/1 ML VIAL IM PRN (12:54)
[2018-07-24] MEDS: ENOXAPARIN 40 MG/0.4 ML SYRINGE SUBCUT SCH (20:58)
[2018-07-24] MEDS: DEXT 5% NACL 0.45% KCL 40 MEQ 40 MEQ/1,000 ML BAG IV SCH (22:24)
[2018-07-25] MEDS: HYDROmorphone 2 MG/1 ML VIAL IV PRN ×2 (02:00→05:18)
[2018-07-25] MEDS: DEXT 5% NACL 0.45% KCL 40 MEQ 40 MEQ/1,000 ML BAG IV SCH (05:20)
[2018-07-25 05:53] LABS: Basophils % 0.2 % (0.0-0.8); Eosinophils % 0.2 % (0.00-10.9); Hematocrit 33.7 VOL% (42.0-52.0); Immature Granulocytes % 0.4 %; Immature Granulocytes Absolute 0.04 #; Lymphocytes # 1.1 10*3/uL (1.4-4.0); Lymphocytes % 10.8 % (21.2-54.2); Mean Corpuscular HGB Conc 32.6 GM/DL (32-36); Mean Corpuscular Hemoglobin 31 PG (27-34); Mean Platelet Volume 10.6 FL (9.6-12.0); Monocytes # 0.6 10*3/uL (0.11-0.8); Monocytes % 5.9 % (1.7-12.7); Neutrophils # 8.1 10*3/uL (1.4-7.4); Neutrophils % 82.5 % (38.7-73.9); Platelet Count 148 T/CUMM (130-400); Red Blood Count 3.51 MC/CUMM (3.8-5.5); Red Cell Distribution Width 13.4 % (9.3-17.3); White Blood Count 9.8 T/CUMM (4-12)
[2018-07-25 06:34] LABS: Osmolality,Calculated 275.7 MOS/KG (273-304); Potassium 4.5 MMOL/L (3.5-5.1)
[2018-07-25] MEDS ORDERED: ALBUTEROL/IPRATROPIUM 3 ML NEB RESP TX STA (08:15)
[2018-07-25] MEDS ORDERED: LEVOFLOXACIN INJ 500 MG in PREMIX 1 EACH IV ONE (08:16)
[2018-07-25] MEDS ORDERED: FUROSEMIDE 40 MG/4 ML VIAL IV ONE (08:16)
[2018-07-25] MEDS ORDERED: LORazepam 2 MG/1 ML VIAL IV ONE (08:29)
[2018-07-25] MEDS ORDERED: LORazepam 2 MG/1 ML VIAL ONE (08:30)
[2018-07-25] MEDS ORDERED: PIPERACILLIN/TAZOBACTAM 3,375 MG in SODIUM CHLORIDE 0.9% 100 ML IV SCH (12:00)
[2018-07-25] MEDS: ALBUTEROL/IPRATROPIUM 3 ML NEB RESP TX SCH ×2 (13:02→19:07)
[2018-07-25] MEDS: PIPERACILLIN/TAZOBACTAM 3,375 MG in SODIUM CHLORIDE 0.9% 100 ML IV SCH ×2 (13:58→20:34)
[2018-07-25] MEDS: ZIPRASIDONE 20 MG/1 ML VIAL IM PRN (18:05)
[2018-07-25] MEDS: ENOXAPARIN 40 MG/0.4 ML SYRINGE SUBCUT SCH (20:34)
[2018-07-26] MEDS: ALBUTEROL/IPRATROPIUM 3 ML NEB RESP TX SCH ×4 (00:47→19:00)
[2018-07-26] MEDS: PIPERACILLIN/TAZOBACTAM 3,375 MG in SODIUM CHLORIDE 0.9% 100 ML IV SCH ×3 (04:49→21:51)
[2018-07-26 05:01] LABS: Basophils % 0.2 % (0.0-0.8); Eosinophils # 0.1 10*3/uL (0.0-0.87); Eosinophils % 1.1 % (0.00-10.9); Hematocrit 30.3 VOL% (42.0-52.0); Hemoglobin 10.2 GM/DL (14.0-18.0); Immature Granulocytes % 0.4 %; Immature Granulocytes Absolute 0.04 #; Lymphocytes # 1.1 10*3/uL (1.4-4.0); Lymphocytes % 11.1 % (21.2-54.2); Mean Corpuscular HGB Conc 33.7 GM/DL (32-36); Mean Corpuscular Hemoglobin 32 PG (27-34); Mean Platelet Volume 10.3 FL (9.6-12.0); Monocytes # 0.5 10*3/uL (0.11-0.8); Monocytes % 5.2 % (1.7-12.7); Neutrophils # 8.3 10*3/uL (1.4-7.4); Platelet Count 145 T/CUMM (130-400); Red Blood Count 3.19 MC/CUMM (3.8-5.5); Red Cell Distribution Width 12.7 % (9.3-17.3); White Blood Count 10.1 T/CUMM (4-12)
[2018-07-26 05:17] LABS: Calcium 8.2 MG/DL (8.5-10.1); Osmolality,Calculated 271.1 MOS/KG (273-304); Potassium 3.8 MMOL/L (3.5-5.1)
[2018-07-26] MEDS ORDERED: MAGNESIUM SULF RIDER 2 GM in PREMIX 1 EACH IV ONE (07:32)
[2018-07-26] MEDS: LEVOFLOXACIN INJ 500 MG in PREMIX 1 EACH IV SCH (11:59)
[2018-07-26] MEDS: ENOXAPARIN 40 MG/0.4 ML SYRINGE SUBCUT SCH (21:46)
[2018-07-26] MEDS: HYDROmorphone 2 MG/1 ML VIAL IV PRN (21:49)
[2018-07-26] MEDS: ZIPRASIDONE 20 MG/1 ML VIAL IM PRN (22:58)
[2018-07-27] MEDS: ALBUTEROL/IPRATROPIUM 3 ML NEB RESP TX SCH ×2 (00:45→07:31)
[2018-07-27] MEDS: PIPERACILLIN/TAZOBACTAM 3,375 MG in SODIUM CHLORIDE 0.9% 100 ML IV SCH ×2 (04:09→15:13)
[2018-07-27 07:31] LABS: Basophils % 0.4 % (0.0-0.8); Eosinophils # 0.3 10*3/uL (0.0-0.87); Eosinophils % 4.3 % (0.00-10.9); Hematocrit 30.5 VOL% (42.0-52.0); Hemoglobin 10.2 GM/DL (14.0-18.0); Immature Granulocytes % 0.5 %; Immature Granulocytes Absolute 0.04 #; Lymphocytes # 1.1 10*3/uL (1.4-4.0); Lymphocytes % 14.2 % (21.2-54.2); Mean Corpuscular HGB Conc 33.4 GM/DL (32-36); Mean Corpuscular Hemoglobin 32 PG (27-34); Mean Corpuscular Volume 94.1 FL (87-102); Mean Platelet Volume 9.8 FL (9.6-12.0); Monocytes # 0.8 10*3/uL (0.11-0.8); Monocytes % 10.7 % (1.7-12.7); Neutrophils # 5.1 10*3/uL (1.4-7.4); Neutrophils % 69.9 % (38.7-73.9); Platelet Count 178 T/CUMM (130-400); Red Blood Count 3.24 MC/CUMM (3.8-5.5); Red Cell Distribution Width 12.9 % (9.3-17.3); White Blood Count 7.4 T/CUMM (4-12)
[2018-07-27 07:52] LABS: Calcium 7.7 MG/DL (8.5-10.1); Osmolality,Calculated 271.1 MOS/KG (273-304); Potassium 3.9 MMOL/L (3.5-5.1)
[2018-07-27] MEDS ORDERED: LEVOFLOXACIN INJ 500 MG in PREMIX 1 EACH IV SCH (09:00)
[2018-07-27] MEDS: LEVOFLOXACIN INJ 500 MG in PREMIX 1 EACH IV SCH (10:01)
[2018-07-27] MEDS ORDERED: BISACODYL 10 MG SUPP RECTAL ONE (10:02)
[2018-07-27] MEDS ORDERED: LACTULOSE 20 GM/30 ML UDCUP PO ONE (10:47)
[2018-07-27 11:33] VITALS: BP 137/84
[2018-07-28] MEDS ORDERED: POLYETHYLENE GLYCOL POWDER 17 GM PACK PO SCH (09:00)
== END 2018-07-27 16:00 | disposition home or self-care (01) | DRG 329 ==
LOC: N.ED 14:27 → N.EDINP 14:27 → N.3E 19:24
PROVIDERS: ADMIT Internal Medicine; ATTEND Internal Medicine

== ENCOUNTER 2018-07-27 23:38 | Inpatient (IN) ==
[2018-07-28 01:23] LABS: Basophils % 0.4 % (0.0-0.8); Eosinophils # 0.2 10*3/uL (0.0-0.87); Eosinophils % 2.3 % (0.00-10.9); Hematocrit 33.7 VOL% (42.0-52.0); Hemoglobin 11.5 GM/DL (14.0-18.0); Immature Granulocytes % 0.6 %; Immature Granulocytes Absolute 0.05 #; Lymphocytes # 0.8 10*3/uL (1.4-4.0); Lymphocytes % 9.4 % (21.2-54.2); Mean Corpuscular HGB Conc 34.1 GM/DL (32-36); Mean Corpuscular Hemoglobin 32 PG (27-34); Mean Corpuscular Volume 92.3 FL (87-102); Mean Platelet Volume 9.8 FL (9.6-12.0); Neutrophils # 6.3 10*3/uL (1.4-7.4); Neutrophils % 75.3 % (38.7-73.9); Platelet Count 207 T/CUMM (130-400); Red Blood Count 3.65 MC/CUMM (3.8-5.5); Red Cell Distribution Width 12.6 % (9.3-17.3); White Blood Count 8.4 T/CUMM (4-12)
[2018-07-28 01:38] LABS: Calcium 9.3 MG/DL (8.5-10.1); Osmolality,Calculated 271.2 MOS/KG (273-304); Potassium 3.4 MMOL/L (3.5-5.1)
[2018-07-28] MEDS ORDERED: PROMETHAZINE 25 MG/1 ML VIAL IM PRN (02:03)
[2018-07-28] MEDS ORDERED: MORPHINE 4 MG/1 ML VIAL IV PRN (02:03)
[2018-07-28] MEDS ORDERED: LORazepam 2 MG/1 ML VIAL IV STA (02:08)
[2018-07-28] MEDS ORDERED: DEXTROSE 5% NACL 0.45% 1,000 ML IV SCH (02:30)
[2018-07-28] MEDS ORDERED: PIPERACILLIN/TAZOBACTAM 3,375 MG in SODIUM CHLORIDE 0.9% 100 ML IV SCH (02:30)
[2018-07-28] MEDS: ONDANSETRON 4 MG/2 ML VIAL IV PRN ×2 (02:41→20:57)
[2018-07-28] MEDS ORDERED: LEVOFLOXACIN 500 MG TABLET PO SCH (09:30)
[2018-07-28] MEDS: DOXAZOSIN 4 MG TABLET PO SCH (10:03)
[2018-07-28] MEDS: MULTIVITAMIN (CENTRUM) TABLET PO SCH (10:03)
[2018-07-28] MEDS: LISINOPRIL 10 MG TABLET PO SCH (10:03)
[2018-07-28] MEDS: BISACODYL 10 MG SUPP RECTAL SCH (10:03)
[2018-07-28] MEDS: DOCUSATE SODIUM 100 MG CAPSULE PO SCH ×2 (10:03→20:57)
[2018-07-28] MEDS: PANTOPRAZOLE 40 MG VIAL IV SCH (10:04)
[2018-07-28] MEDS: POLYETHYLENE GLYCOL POWDER 17 GM PACK PO SCH ×2 (10:05→20:57)
[2018-07-28] MEDS: CHOLECALCIFEROL 5,000 UNIT TABLET PO SCH (10:07)
[2018-07-28] MEDS ORDERED: POTASSIUM CHLORIDE 20 MEQ TABLET PO ONE (11:13)
[2018-07-28] MEDS ORDERED: LORazepam 2 MG/1 ML VIAL IV PRN (11:14)
[2018-07-28] MEDS: CLORAZEPATE 3.75 MG TABLET PO SCH ×2 (12:16→20:57)
[2018-07-28] MEDS: METOCLOPRAMIDE 10 MG/2 ML VIAL IV SCH ×2 (12:16→17:17)
[2018-07-28] MEDS: PIPERACILLIN/TAZOBACTAM 3,375 MG in SODIUM CHLORIDE 0.9% 100 ML IV SCH ×2 (14:32→21:05)
[2018-07-28] MEDS: DEXT 5% NACL 0.45% KCL 20 MEQ 20 MEQ/1,000 ML BAG IV SCH (18:59)
[2018-07-28] MEDS: traZODone 50 MG TABLET PO SCH (20:57)
[2018-07-29] MEDS: METOCLOPRAMIDE 10 MG/2 ML VIAL IV SCH ×4 (01:07→17:25)
[2018-07-29 04:34] LABS: Basophils % 0.3 % (0.0-0.8); Eosinophils # 0.5 10*3/uL (0.0-0.87); Eosinophils % 7.3 % (0.00-10.9); Hematocrit 25.5 VOL% (42.0-52.0); Hemoglobin 8.4 GM/DL (14.0-18.0); Immature Granulocytes % 0.4 %; Immature Granulocytes Absolute 0.03 #; Lymphocytes # 1.3 10*3/uL (1.4-4.0); Lymphocytes % 18.2 % (21.2-54.2); Mean Corpuscular HGB Conc 32.9 GM/DL (32-36); Mean Corpuscular Hemoglobin 31 PG (27-34); Mean Corpuscular Volume 94.8 FL (87-102); Monocytes # 0.9 10*3/uL (0.11-0.8); Monocytes % 12.3 % (1.7-12.7); Neutrophils # 4.3 10*3/uL (1.4-7.4); Neutrophils % 61.5 % (38.7-73.9); Platelet Count 172 T/CUMM (130-400); Red Blood Count 2.69 MC/CUMM (3.8-5.5); Red Cell Distribution Width 12.9 % (9.3-17.3)
[2018-07-29 04:53] LABS: Calcium 7.7 MG/DL (8.5-10.1); Osmolality,Calculated 276.7 MOS/KG (273-304); Potassium 3.5 MMOL/L (3.5-5.1)
[2018-07-29] MEDS: PIPERACILLIN/TAZOBACTAM 3,375 MG in SODIUM CHLORIDE 0.9% 100 ML IV SCH ×3 (06:00→22:07)
[2018-07-29] MEDS: DEXT 5% NACL 0.45% KCL 20 MEQ 20 MEQ/1,000 ML BAG IV SCH ×2 (06:23→18:02)
[2018-07-29] MEDS ORDERED: MAGNESIUM SULF RIDER 2 GM in PREMIX 1 EACH IV ONE (06:52)
[2018-07-29] MEDS ORDERED: LEVOFLOXACIN INJ 500 MG in PREMIX 1 EACH IV SCH (09:00)
[2018-07-29] MEDS: POLYETHYLENE GLYCOL POWDER 17 GM PACK PO SCH ×2 (09:47→22:09)
[2018-07-29] MEDS: CLORAZEPATE 3.75 MG TABLET PO SCH ×2 (09:49→22:09)
[2018-07-29] MEDS: MULTIVITAMIN (CENTRUM) TABLET PO SCH (09:49)
[2018-07-29] MEDS: PANTOPRAZOLE 40 MG VIAL IV SCH (09:49)
[2018-07-29] MEDS: CHOLECALCIFEROL 5,000 UNIT TABLET PO SCH (09:49)
[2018-07-29] MEDS: LISINOPRIL 10 MG TABLET PO SCH (09:50)
[2018-07-29] MEDS: DOXAZOSIN 4 MG TABLET PO SCH (09:50)
[2018-07-29] MEDS: BISACODYL 10 MG SUPP RECTAL SCH ×2 (09:50→12:38)
[2018-07-29] MEDS: DOCUSATE SODIUM 100 MG CAPSULE PO SCH ×2 (12:38→22:09)
[2018-07-29] MEDS: traZODone 50 MG TABLET PO SCH (22:09)
[2018-07-30] MEDS: METOCLOPRAMIDE 10 MG/2 ML VIAL IV SCH ×3 (00:25→12:57)
[2018-07-30] MEDS: DEXT 5% NACL 0.45% KCL 20 MEQ 20 MEQ/1,000 ML BAG IV SCH (05:49)
[2018-07-30] MEDS: PIPERACILLIN/TAZOBACTAM 3,375 MG in SODIUM CHLORIDE 0.9% 100 ML IV SCH (06:02)
[2018-07-30] MEDS ORDERED: LEVOFLOXACIN 500 MG TABLET PO SCH (09:00)
[2018-07-30] MEDS ORDERED: PANTOPRAZOLE 40 MG TABLET PO SCH (09:00)
[2018-07-30] MEDS: MULTIVITAMIN (CENTRUM) TABLET PO SCH (09:29)
[2018-07-30] MEDS: DOCUSATE SODIUM 100 MG CAPSULE PO SCH (09:29)
[2018-07-30] MEDS: DOXAZOSIN 4 MG TABLET PO SCH (09:29)
[2018-07-30] MEDS: CLORAZEPATE 3.75 MG TABLET PO SCH (09:31)
[2018-07-30] MEDS: BISACODYL 10 MG SUPP RECTAL SCH (09:31)
[2018-07-30] MEDS: LISINOPRIL 10 MG TABLET PO SCH (09:31)
[2018-07-30] MEDS: CHOLECALCIFEROL 5,000 UNIT TABLET PO SCH (09:32)
[2018-07-30] MEDS: POLYETHYLENE GLYCOL POWDER 17 GM PACK PO SCH (09:39)
[2018-07-30 09:47] LABS: Calcium 7.8 MG/DL (8.5-10.1); Osmolality,Calculated 275.5 MOS/KG (273-304); Potassium 3.9 MMOL/L (3.5-5.1)
[2018-07-30 11:44] VITALS: BP 88/42
== END 2018-07-30 16:42 | disposition home or self-care (01) | DRG 391 ==
LOC: N.EDINP 23:38 → N.ED 23:38 → N.3E 07-28 02:55
PROVIDERS: ADMIT Surgery; ATTEND Surgery

== ENCOUNTER 2018-08-13 14:45 | Inpatient (IN) ==
[2018-08-13] MEDS ORDERED: metroNIDAZOLE INJ 500 MG in PREMIX 1 EACH IV STA (15:09)
[2018-08-13] MEDS ORDERED: ONDANSETRON 4 MG/2 ML VIAL IV STA (15:09)
[2018-08-13] MEDS ORDERED: SODIUM CHLORIDE 0.9% 1,000 ML IV STA (15:09)
[2018-08-13] MEDS ORDERED: cefTRIAXone 1,000 MG in SODIUM CHLORIDE 0.9% 100 ML IV STA (15:09)
[2018-08-13 16:09] LABS: Basophils % 0.5 % (0.0-0.8); Eosinophils # 0.2 10*3/uL (0.0-0.87); Eosinophils % 2.5 % (0.00-10.9); Hematocrit 33.1 VOL% (42.0-52.0); Hemoglobin 10.8 GM/DL (14.0-18.0); Immature Granulocytes % 0.5 %; Immature Granulocytes Absolute 0.04 #; Lymphocytes # 1.2 10*3/uL (1.4-4.0); Lymphocytes % 15.5 % (21.2-54.2); Mean Corpuscular HGB Conc 32.6 GM/DL (32-36); Mean Corpuscular Hemoglobin 31 PG (27-34); Mean Corpuscular Volume 95.7 FL (87-102); Mean Platelet Volume 9.2 FL (9.6-12.0); Monocytes # 0.7 10*3/uL (0.11-0.8); Monocytes % 8.9 % (1.7-12.7); Neutrophils # 5.4 10*3/uL (1.4-7.4); Neutrophils % 72.1 % (38.7-73.9); Platelet Count 315 T/CUMM (130-400); Red Blood Count 3.46 MC/CUMM (3.8-5.5); Red Cell Distribution Width 13.7 % (9.3-17.3); White Blood Count 7.5 T/CUMM (4-12)
[2018-08-13 16:22] LABS: Alanine Aminotransferase 22 U/L (16-61); Albumin 3.1 G/DL (3.4-5.0); Alkaline Phosphatase 69 U/L (45-117); Amylase 79 U/L (25-115); Aspartate Amino Transferase 18 U/L (0-37); Blood Urea Nitrogen 16 MG/DL (7-18); Calcium 8.6 MG/DL (8.5-10.1); Glucose 108 MG/DL (74-106); Osmolality,Calculated 267.4 MOS/KG (273-304); Potassium 3.7 MMOL/L (3.5-5.1); Sodium 133 MMOL/L (136-145); Total Protein 7.3 G/DL (6.4-8.3); Troponin I < 0.015 NG/ML (0.00-0.045)
[2018-08-13] MEDS ORDERED: fentaNYL 100 MCG/2 ML VIAL IV PRN (17:18)
[2018-08-13] MEDS ORDERED: ONDANSETRON 4 MG/2 ML VIAL IV PRN (17:18)
[2018-08-13] MEDS ORDERED: LORazepam 2 MG/1 ML VIAL IV PRN (17:18)
[2018-08-13 17:38] LABS: Apearance,Urine Slightly Hazy (Clear); Bilirubin,Urine Negative (Negative); Blood, Urine Negative (Negative); Glucose,Urine (UA) Negative (Negative); Ketones,Urine Negative (Negative); Mucus,Urine Occasional /LPF (Occasional); Nitrite,Urine Negative (Negative); Protein,Urine Negative; RBC,Urine 1 /HPF (0-4); Squamous Epithelial Cell,Urine Occasional /HPF (0-10); Urine Color Yellow (Yellow); Urine Specific Gravity 1.021 (1.001-1.035); Urine Urobilinogen < 2.0 EU/DL (0.2-1.0); WBC,Urine 1 /HPF (0-6)
[2018-08-13] MEDS: DEXTROSE 5% NACL 0.45% 1,000 ML IV SCH (20:45)
[2018-08-13] MEDS: AMPICILLIN/SULBACTAM 3,000 MG in SODIUM CHLORIDE 0.9% 100 ML IV SCH (22:01)
[2018-08-13] MEDS: METOCLOPRAMIDE 10 MG/2 ML VIAL IV SCH (22:02)
[2018-08-14] MEDS: METOCLOPRAMIDE 10 MG/2 ML VIAL IV SCH ×4 (01:05→17:40)
[2018-08-14] MEDS: DEXTROSE 5% NACL 0.45% 1,000 ML IV SCH ×5 (01:10→17:30)
[2018-08-14] MEDS: AMPICILLIN/SULBACTAM 3,000 MG in SODIUM CHLORIDE 0.9% 100 ML IV SCH ×3 (02:40→17:43)
[2018-08-14 05:05] LABS: Basophils # 0.1 10*3/uL (0.0-0.2); Basophils % 0.9 % (0.0-0.8); Eosinophils # 0.3 10*3/uL (0.0-0.87); Eosinophils % 5.5 % (0.00-10.9); Hematocrit 29.7 VOL% (42.0-52.0); Hemoglobin 9.4 GM/DL (14.0-18.0); Immature Granulocytes % 0.4 %; Immature Granulocytes Absolute 0.02 #; Lymphocytes # 1.4 10*3/uL (1.4-4.0); Lymphocytes % 27.3 % (21.2-54.2); Mean Corpuscular HGB Conc 31.6 GM/DL (32-36); Mean Corpuscular Hemoglobin 30 PG (27-34); Mean Corpuscular Volume 96.1 FL (87-102); Mean Platelet Volume 9.6 FL (9.6-12.0); Monocytes # 0.5 10*3/uL (0.11-0.8); Monocytes % 9.7 % (1.7-12.7); Neutrophils % 56.2 % (38.7-73.9); Platelet Count 288 T/CUMM (130-400); Red Blood Count 3.09 MC/CUMM (3.8-5.5); Red Cell Distribution Width 13.7 % (9.3-17.3); White Blood Count 5.3 T/CUMM (4-12)
[2018-08-14 05:22] LABS: Calcium 7.9 MG/DL (8.5-10.1); Osmolality,Calculated 272.8 MOS/KG (273-304); Potassium 3.8 MMOL/L (3.5-5.1)
[2018-08-14] MEDS ORDERED: POLYETHYLENE GLYCOL POWDER 255 GM BOTTLE PO SCH (09:30)
[2018-08-14] MEDS: POLYETHYLENE GLYCOL POWDER 17 GM PACK PO SCH ×3 (10:27→20:55)
[2018-08-14] MEDS: DOXAZOSIN 4 MG TABLET PO SCH (10:27)
[2018-08-14] MEDS: LISINOPRIL 5 MG TABLET PO SCH (10:27)
[2018-08-14] MEDS: MULTIVITAMIN (CENTRUM) TABLET PO SCH (10:27)
[2018-08-14] MEDS: DOCUSATE SODIUM 100 MG CAPSULE PO SCH ×2 (10:27→20:55)
[2018-08-14] MEDS: SODIUM PHOSPHATE ENEMA 133 ML BOTTLE RECTAL SCH (10:37)
[2018-08-14] MEDS: traZODone 50 MG TABLET PO SCH (20:55)
[2018-08-15] MEDS: AMPICILLIN/SULBACTAM 3,000 MG in SODIUM CHLORIDE 0.9% 100 ML IV SCH ×3 (00:49→17:50)
[2018-08-15] MEDS: METOCLOPRAMIDE 10 MG/2 ML VIAL IV SCH ×4 (00:52→17:46)
[2018-08-15] MEDS: DEXTROSE 5% NACL 0.45% 1,000 ML IV SCH ×4 (02:00→21:17)
[2018-08-15] MEDS: POLYETHYLENE GLYCOL POWDER 17 GM PACK PO SCH ×2 (09:15→21:16)
[2018-08-15] MEDS: MULTIVITAMIN (CENTRUM) TABLET PO SCH (09:16)
[2018-08-15] MEDS: DOXAZOSIN 4 MG TABLET PO SCH (09:16)
[2018-08-15] MEDS: DOCUSATE SODIUM 100 MG CAPSULE PO SCH ×2 (09:16→21:14)
[2018-08-15] MEDS: LISINOPRIL 5 MG TABLET PO SCH (09:17)
[2018-08-15] MEDS: SODIUM PHOSPHATE ENEMA 133 ML BOTTLE RECTAL SCH (09:18)
[2018-08-15] MEDS: traZODone 50 MG TABLET PO SCH (21:14)
[2018-08-16] MEDS: METOCLOPRAMIDE 10 MG/2 ML VIAL IV SCH ×3 (00:40→13:32)
[2018-08-16] MEDS: AMPICILLIN/SULBACTAM 3,000 MG in SODIUM CHLORIDE 0.9% 100 ML IV SCH ×2 (00:43→08:43)
[2018-08-16] MEDS: DEXTROSE 5% NACL 0.45% 1,000 ML IV SCH ×3 (02:34→12:34)
[2018-08-16] MEDS: DOCUSATE SODIUM 100 MG CAPSULE PO SCH (08:00)
[2018-08-16] MEDS: MULTIVITAMIN (CENTRUM) TABLET PO SCH (08:00)
[2018-08-16] MEDS: LISINOPRIL 5 MG TABLET PO SCH (08:00)
[2018-08-16] MEDS: POLYETHYLENE GLYCOL POWDER 17 GM PACK PO SCH (08:00)
[2018-08-16] MEDS: DOXAZOSIN 4 MG TABLET PO SCH (08:00)
[2018-08-16] MEDS: SODIUM PHOSPHATE ENEMA 133 ML BOTTLE RECTAL SCH (08:01)
[2018-08-16 11:09] VITALS: BP 131/72
== END 2018-08-16 12:59 | disposition home or self-care (01) | DRG 392 ==
LOC: N.ED 14:45 → N.EDINP 17:16 → N.3E 17:58
PROVIDERS: ADMIT Surgery; ATTEND Surgery

== ENCOUNTER 2019-02-14 08:59 | Observation (INO) ==
[2019-02-14 10:48] LABS: Basophils # 0.1 10*3/uL (0.0-0.2); Basophils % 0.8 % (0.0-0.8); Eosinophils # 0.2 10*3/uL (0.0-0.87); Eosinophils % 3.1 % (0.00-10.9); Hematocrit 38.7 VOL% (42.0-52.0); Hemoglobin 12.7 GM/DL (14.0-18.0); Immature Granulocytes % 0.2 %; Immature Granulocytes Absolute 0.01 #; Lymphocytes # 1.6 10*3/uL (1.4-4.0); Lymphocytes % 27.3 % (21.2-54.2); Mean Corpuscular HGB Conc 32.8 GM/DL (32-36); Mean Corpuscular Volume 95.6 FL (87-102); Monocytes % 11.4 % (1.7-12.7); Neutrophils % 57.2 % (38.7-73.9); Platelet Count 170 T/CUMM (130-400); Red Blood Count 4.05 MC/CUMM (3.8-5.5); Red Cell Distribution Width 12.6 % (9.3-17.3); White Blood Count 5.9 T/CUMM (4-12)
[2019-02-14 11:23] LABS: Albumin 3.8 G/DL (3.4-5.0); Apearance,Urine Slightly Hazy (Clear); Bilirubin,Total 0.5 MG/DL (0.2-1.0); Bilirubin,Urine Negative (Negative); Blood, Urine Negative (Negative); Calcium 9.1 MG/DL (8.5-10.1); Glucose,Urine (UA) Negative (Negative); Ketones,Urine Negative (Negative); Nitrite,Urine Negative (Negative); Osmolality,Calculated 277.4 MOS/KG (273-304); Protein,Urine Negative; RBC,Urine 5 /HPF (0-4); Total Protein 7.5 G/DL (6.4-8.3); Urine Color Yellow (Yellow); Urine Specific Gravity 1.016 (1.001-1.035); Urine Urobilinogen < 2.0 EU/DL (0.2-1.0); WBC,Urine 1 /HPF (0-6)
[2019-02-14] MEDS ORDERED: ONDANSETRON 4 MG/2 ML VIAL IV PRN (14:29)
[2019-02-14] MEDS ORDERED: PROMETHAZINE 25 MG/1 ML VIAL IM PRN (14:29)
[2019-02-14] MEDS ORDERED: MORPHINE 4 MG/1 ML VIAL IV PRN (14:29)
[2019-02-14] MEDS ORDERED: ACETAMINOPHEN 325 MG TABLET PO PRN (14:29)
[2019-02-14] MEDS ORDERED: PANTOPRAZOLE 40 MG TABLET PO SCH (14:30)
[2019-02-14] MEDS: POLYETHYLENE GLYCOL POWDER 17 GM PACK PO SCH (20:38)
[2019-02-14] MEDS: DOCUSATE SODIUM 100 MG CAPSULE PO SCH (20:38)
[2019-02-14] MEDS: ENOXAPARIN 40 MG/0.4 ML SYRINGE SUBCUT SCH (20:38)
[2019-02-14] MEDS: traZODone 50 MG TABLET PO SCH (20:38)
[2019-02-15 05:31] LABS: Basophils % 0.6 % (0.0-0.8); Eosinophils # 0.3 10*3/uL (0.0-0.87); Eosinophils % 6.1 % (0.00-10.9); Hematocrit 36.3 VOL% (42.0-52.0); Hemoglobin 12.1 GM/DL (14.0-18.0); Immature Granulocytes % 0.2 %; Immature Granulocytes Absolute 0.01 #; Lymphocytes # 1.5 10*3/uL (1.4-4.0); Lymphocytes % 29.6 % (21.2-54.2); Mean Corpuscular HGB Conc 33.3 GM/DL (32-36); Mean Corpuscular Volume 94.8 FL (87-102); Mean Platelet Volume 10.7 FL (9.6-12.0); Monocytes % 11.8 % (1.7-12.7); Neutrophils % 51.7 % (38.7-73.9); Platelet Count 178 T/CUMM (130-400); Red Blood Count 3.83 MC/CUMM (3.8-5.5); Red Cell Distribution Width 12.6 % (9.3-17.3); White Blood Count 5.1 T/CUMM (4-12)
[2019-02-15 05:43] LABS: Albumin 3.3 G/DL (3.4-5.0); Bilirubin,Total 0.6 MG/DL (0.2-1.0); Osmolality,Calculated 278.3 MOS/KG (273-304); Total Protein 6.9 G/DL (6.4-8.3)
[2019-02-15] MEDS ORDERED: PANTOPRAZOLE 40 MG TABLET PO SCH (09:00)
[2019-02-15] MEDS: DOXAZOSIN 4 MG TABLET PO SCH (09:24)
[2019-02-15] MEDS: CHOLECALCIFEROL 5,000 UNIT TABLET PO SCH (09:24)
[2019-02-15] MEDS: LISINOPRIL 5 MG TABLET PO SCH (09:24)
[2019-02-15] MEDS: MULTIVITAMIN (CENTRUM) TABLET PO SCH (09:24)
[2019-02-15] MEDS: POLYETHYLENE GLYCOL POWDER 17 GM PACK PO SCH ×2 (10:40→20:28)
[2019-02-15] MEDS: DOCUSATE SODIUM 100 MG CAPSULE PO SCH ×2 (10:40→20:26)
[2019-02-15] MEDS ORDERED: LORazepam 2 MG/1 ML VIAL IV PRN (13:18)
[2019-02-15] MEDS: traZODone 50 MG TABLET PO SCH (20:26)
[2019-02-15] MEDS: ENOXAPARIN 40 MG/0.4 ML SYRINGE SUBCUT SCH (20:28)
[2019-02-16 05:51] LABS: Basophils % 0.7 % (0.0-0.8); Eosinophils # 0.3 10*3/uL (0.0-0.87); Eosinophils % 5.7 % (0.00-10.9); Hematocrit 34.6 VOL% (42.0-52.0); Hemoglobin 11.4 GM/DL (14.0-18.0); Immature Granulocytes % 0.3 %; Immature Granulocytes Absolute 0.02 #; Lymphocytes # 1.7 10*3/uL (1.4-4.0); Lymphocytes % 28.9 % (21.2-54.2); Mean Corpuscular HGB Conc 32.9 GM/DL (32-36); Mean Corpuscular Volume 95.6 FL (87-102); Mean Platelet Volume 10.2 FL (9.6-12.0); Monocytes % 9.8 % (1.7-12.7); Neutrophils % 54.6 % (38.7-73.9); Platelet Count 174 T/CUMM (130-400); Red Blood Count 3.62 MC/CUMM (3.8-5.5); Red Cell Distribution Width 12.5 % (9.3-17.3); White Blood Count 5.9 T/CUMM (4-12)
[2019-02-16 06:14] LABS: Calcium 8.8 MG/DL (8.5-10.1); Osmolality,Calculated 278.3 MOS/KG (273-304)
[2019-02-16 07:31] VITALS: BP 156/79
[2019-02-16] MEDS: CHOLECALCIFEROL 5,000 UNIT TABLET PO SCH (08:29)
[2019-02-16] MEDS: DOCUSATE SODIUM 100 MG CAPSULE PO SCH (08:29)
[2019-02-16] MEDS: POLYETHYLENE GLYCOL POWDER 17 GM PACK PO SCH (08:29)
[2019-02-16] MEDS: DOXAZOSIN 4 MG TABLET PO SCH (08:29)
[2019-02-16] MEDS: MULTIVITAMIN (CENTRUM) TABLET PO SCH (08:29)
[2019-02-16] MEDS: LISINOPRIL 5 MG TABLET PO SCH (08:29)
== END 2019-02-16 10:39 | disposition home or self-care (01) ==
LOC: N.ED 08:59 → N.EDINP 08:59 → N.2E 16:07
PROVIDERS: ADMIT Internal Medicine; ATTEND Internal Medicine

== ENCOUNTER 2019-02-18 21:08 | Observation (INO) ==
[2019-02-18] MEDS ORDERED: ONDANSETRON 4 MG/2 ML VIAL IV STA (22:28)
[2019-02-18] MEDS ORDERED: KETOROLAC 30 MG/1 ML VIAL IV STA (22:28)
[2019-02-18 22:33] LABS: Basophils # 0.1 10*3/uL (0.0-0.2); Basophils % 0.9 % (0.0-0.8); Eosinophils # 0.3 10*3/uL (0.0-0.87); Eosinophils % 5.9 % (0.00-10.9); Hematocrit 37.2 VOL% (42.0-52.0); Hemoglobin 12.2 GM/DL (14.0-18.0); Immature Granulocytes % 0.2 %; Immature Granulocytes Absolute 0.01 #; Lymphocytes # 1.7 10*3/uL (1.4-4.0); Lymphocytes % 31.1 % (21.2-54.2); Mean Corpuscular HGB Conc 32.8 GM/DL (32-36); Mean Corpuscular Volume 94.9 FL (87-102); Mean Platelet Volume 10.3 FL (9.6-12.0); Monocytes % 13.6 % (1.7-12.7); Neutrophils % 48.3 % (38.7-73.9); Platelet Count 190 T/CUMM (130-400); Red Blood Count 3.92 MC/CUMM (3.8-5.5); Red Cell Distribution Width 12.4 % (9.3-17.3); White Blood Count 5.6 T/CUMM (4-12)
[2019-02-18 22:51] LABS: Alanine Aminotransferase 26 U/L (16-61); Albumin 3.5 G/DL (3.4-5.0); Alkaline Phosphatase 72 U/L (45-117); Aspartate Amino Transferase 24 U/L (0-37); Bilirubin,Total < 0.39 MG/DL (0.2-1.0); Blood Urea Nitrogen 12 MG/DL (7-18); Calcium 8.8 MG/DL (8.5-10.1); Glucose 98 MG/DL (74-106); Osmolality,Calculated 274.7 MOS/KG (273-304); Total Protein 7.6 G/DL (6.4-8.3)
[2019-02-19] MEDS ORDERED: HYDROmorphone 2 MG/1 ML VIAL IV STA (00:50)
[2019-02-19] MEDS ORDERED: hydrALAZINE 20 MG/1 ML VIAL IV PRN (03:05)
[2019-02-19] MEDS ORDERED: PROMETHAZINE 25 MG/1 ML VIAL IM PRN (03:05)
[2019-02-19] MEDS ORDERED: ONDANSETRON 4 MG/2 ML VIAL IV PRN (03:05)
[2019-02-19] MEDS: SODIUM CHLORIDE 0.9% 1,000 ML IV SCH (03:58)
[2019-02-19] MEDS: PANTOPRAZOLE 40 MG VIAL IV SCH (09:34)
[2019-02-19] MEDS: ENOXAPARIN 40 MG/0.4 ML SYRINGE SUBCUT SCH (09:36)
[2019-02-19 13:46] LABS: Apearance,Urine CLEAR (Clear); Bilirubin,Urine Negative (Negative); Blood, Urine Negative (Negative); Glucose,Urine (UA) Negative (Negative); Ketones,Urine Negative (Negative); Mucus,Urine Occasional /LPF (Occasional); Nitrite,Urine Negative (Negative); Protein,Urine Negative; RBC,Urine 3 /HPF (0-4); Urine Color Yellow (Yellow); Urine Specific Gravity > 1.060 (1.001-1.035); Urine Urobilinogen < 2.0 EU/DL (0.2-1.0); WBC,Urine 1 /HPF (0-6)
[2019-02-20 05:50] LABS: Basophils # 0.1 10*3/uL (0.0-0.2); Basophils % 1.2 % (0.0-0.8); Eosinophils # 0.5 10*3/uL (0.0-0.87); Eosinophils % 10.2 % (0.00-10.9); Hematocrit 35.2 VOL% (42.0-52.0); Hemoglobin 11.5 GM/DL (14.0-18.0); Immature Granulocytes % 0.2 %; Immature Granulocytes Absolute 0.01 #; Lymphocytes # 1.4 10*3/uL (1.4-4.0); Lymphocytes % 27.5 % (21.2-54.2); Mean Corpuscular HGB Conc 32.7 GM/DL (32-36); Mean Corpuscular Volume 94.6 FL (87-102); Mean Platelet Volume 9.7 FL (9.6-12.0); Monocytes % 11.2 % (1.7-12.7); Neutrophils % 49.7 % (38.7-73.9); Platelet Count 171 T/CUMM (130-400); Red Blood Count 3.72 MC/CUMM (3.8-5.5); Red Cell Distribution Width 12.2 % (9.3-17.3); White Blood Count 5.1 T/CUMM (4-12)
[2019-02-20 06:17] LABS: Calcium 8.7 MG/DL (8.5-10.1); Osmolality,Calculated 276.4 MOS/KG (273-304)
[2019-02-20] MEDS: SODIUM CHLORIDE 0.9% 1,000 ML IV SCH (07:35)
[2019-02-20 08:04] VITALS: BP 142/77
[2019-02-20] MEDS: ENOXAPARIN 40 MG/0.4 ML SYRINGE SUBCUT SCH (08:48)
[2019-02-20] MEDS: PANTOPRAZOLE 40 MG VIAL IV SCH (08:48)
== END 2019-02-20 11:20 ==
LOC: N.EDINP 21:08 → N.ED 21:08 → N.3E 02-19 02:30
PROVIDERS: ADMIT Internal Medicine; ATTEND Internal Medicine

== ENCOUNTER 2019-10-08 18:27 | Inpatient (IN) ==
[2019-10-08 19:35] LABS: Basophils % 0.2 % (0.0-0.8); Eosinophils % 0.1 % (0.00-10.9); Hematocrit 38.2 VOL% (42.0-52.0); Hemoglobin 12.7 GM/DL (14.0-18.0); Immature Granulocytes % 0.5 %; Immature Granulocytes Absolute 0.07 #; Lymphocytes # 0.7 10*3/uL (1.4-4.0); Lymphocytes % 5.4 % (21.2-54.2); Mean Corpuscular HGB Conc 33.2 GM/DL (32-36); Mean Corpuscular Volume 95.7 FL (87-102); Mean Platelet Volume 11.2 FL (9.6-12.0); Monocytes % 9.5 % (1.7-12.7); Neutrophils % 84.3 % (38.7-73.9); Platelet Count 206 T/CUMM (130-400); Red Blood Count 3.99 MC/CUMM (3.8-5.5); Red Cell Distribution Width 12.9 % (9.3-17.3)
[2019-10-08] MEDS ORDERED: ACETAMINOPHEN 500 MG TABLET PO STA (19:42)
[2019-10-08] MEDS ORDERED: SODIUM CHLORIDE 0.9% 1,000 ML IV STA (19:42)
[2019-10-08 20:08] LABS: Apearance,Urine Slightly Hazy (Clear); Bacteria,Urine Occasional /HPF (Few); Bilirubin,Urine Negative (Negative); Blood, Urine Moderate mg/dL (Negative); Glucose,Urine (UA) Negative (Negative); Hyaline Casts,Urine 5 /LPF (0-3); Ketones,Urine Negative (Negative); Mucus,Urine Occasional /LPF (Occasional); Nitrite,Urine Negative (Negative); Protein,Urine 100 MG/DL; RBC,Urine 7 /HPF (0-4); Squamous Epithelial Cell,Urine Occasional /HPF (0-10); Urine Color Amber (Yellow); Urine Specific Gravity 1.027 (1.001-1.035); Urine Urobilinogen < 2.0 EU/DL (0.2-1.0); WBC,Urine 38 /HPF (0-6)
[2019-10-08 20:52] LABS: Bilirubin,Total 0.6 MG/DL (0.2-1.0); Calcium 8.3 MG/DL (8.5-10.1); Osmolality,Calculated 266.5 MOS/KG (273-304); Total Protein 7.2 G/DL (6.4-8.3)
[2019-10-08] MEDS ORDERED: hydrALAZINE 20 MG/1 ML VIAL IV PRN (22:50)
[2019-10-08] MEDS ORDERED: ALBUTEROL 2.5 MG/3 ML NEB RESP TX PRN (22:50)
[2019-10-08] MEDS ORDERED: diphenhydrAMINE CAP 25 MG CAPSULE PO PRN (22:50)
[2019-10-08] MEDS ORDERED: NICOTINE 21 MG/24 HR PATCH TRANSDERM PRN (22:50)
[2019-10-08] MEDS: cefTRIAXone 1,000 MG in SYRINGE 1 EACH IV SCH (23:02)
[2019-10-09] MEDS: DEXTROSE 5% NACL 0.9% 1,000 ML IV SCH ×2 (00:52→17:15)
[2019-10-09] MEDS: metroNIDAZOLE INJ 500 MG in PREMIX 1 EACH IV SCH ×4 (01:00→23:26)
[2019-10-09] MEDS: MORPHINE 4 MG/1 ML VIAL IV PRN ×2 (01:02→23:30)
[2019-10-09] MEDS: ONDANSETRON 4 MG/2 ML VIAL IV PRN ×2 (01:04→23:29)
[2019-10-09] MEDS: DICYCLOMINE 20 MG/2 ML AMP IM SCH ×5 (02:39→23:27)
[2019-10-09 05:32] LABS: Basophils % 0.2 % (0.0-0.8); Eosinophils % 0.1 % (0.00-10.9); Hematocrit 32.2 VOL% (42.0-52.0); Hemoglobin 10.8 GM/DL (14.0-18.0); Immature Granulocytes % 1.1 %; Immature Granulocytes Absolute 0.14 #; Lymphocytes # 1.1 10*3/uL (1.4-4.0); Lymphocytes % 8.5 % (21.2-54.2); Mean Corpuscular HGB Conc 33.5 GM/DL (32-36); Mean Corpuscular Volume 95.3 FL (87-102); Mean Platelet Volume 10.7 FL (9.6-12.0); Monocytes % 9.6 % (1.7-12.7); Neutrophils % 80.5 % (38.7-73.9); Red Blood Count 3.38 MC/CUMM (3.8-5.5); Red Cell Distribution Width 12.7 % (9.3-17.3); White Blood Count 12.4 T/CUMM (4-12)
[2019-10-09 05:33] LABS: Platelet Count 153 T/CUMM (130-400)
[2019-10-09 05:45] LABS: Albumin 2.5 G/DL (3.4-5.0); Bilirubin,Total 1.1 MG/DL (0.2-1.0); Calcium 8.2 MG/DL (8.5-10.1); Total Protein 6.4 G/DL (6.4-8.3)
[2019-10-09] MEDS: PANTOPRAZOLE 40 MG VIAL IV SCH (09:32)
[2019-10-09] MEDS: ENOXAPARIN 40 MG/0.4 ML SYRINGE SUBCUT SCH (09:34)
[2019-10-09] MEDS: ACETAMINOPHEN 325 MG TABLET PO PRN ×2 (12:48→20:37)
[2019-10-09] MEDS: cefTRIAXone 1,000 MG in SYRINGE 1 EACH IV SCH (23:28)
[2019-10-10 05:15] LABS: Basophils % 0.5 % (0.0-0.8); Eosinophils # 0.1 10*3/uL (0.0-0.87); Eosinophils % 1.6 % (0.00-10.9); Hematocrit 28.3 VOL% (42.0-52.0); Hemoglobin 9.5 GM/DL (14.0-18.0); Immature Granulocytes % 0.6 %; Immature Granulocytes Absolute 0.05 #; Lymphocytes # 1.1 10*3/uL (1.4-4.0); Mean Corpuscular HGB Conc 33.6 GM/DL (32-36); Mean Corpuscular Volume 96.6 FL (87-102); Mean Platelet Volume 10.6 FL (9.6-12.0); Monocytes % 10.4 % (1.7-12.7); Neutrophils % 74.9 % (38.7-73.9); Platelet Count 147 T/CUMM (130-400); Red Blood Count 2.93 MC/CUMM (3.8-5.5); Red Cell Distribution Width 13.2 % (9.3-17.3); White Blood Count 8.9 T/CUMM (4-12)
[2019-10-10 05:28] LABS: Calcium 7.5 MG/DL (8.5-10.1); Osmolality,Calculated 278.5 MOS/KG (273-304)
[2019-10-10] MEDS: metroNIDAZOLE INJ 500 MG in PREMIX 1 EACH IV SCH ×2 (06:21→14:20)
[2019-10-10] MEDS: DICYCLOMINE 20 MG/2 ML AMP IM SCH ×3 (06:23→17:18)
[2019-10-10] MEDS: PANTOPRAZOLE 40 MG VIAL IV SCH (10:01)
[2019-10-10] MEDS: ENOXAPARIN 40 MG/0.4 ML SYRINGE SUBCUT SCH (10:03)
[2019-10-10] MEDS: DEXTROSE 5% NACL 0.9% 1,000 ML IV SCH ×2 (12:35)
[2019-10-10] MEDS: LORazepam 2 MG/1 ML VIAL IV PRN (20:59)
[2019-10-11] MEDS: cefTRIAXone 1,000 MG in SYRINGE 1 EACH IV SCH ×2 (00:02→22:37)
[2019-10-11] MEDS: DICYCLOMINE 20 MG/2 ML AMP IM SCH ×5 (00:03→23:09)
[2019-10-11] MEDS: metroNIDAZOLE INJ 500 MG in PREMIX 1 EACH IV SCH ×4 (00:03→22:38)
[2019-10-11] MEDS: LORazepam 2 MG/1 ML VIAL IV PRN ×2 (04:34→14:44)
[2019-10-11 06:01] LABS: Basophils % 0.7 % (0.0-0.8); Eosinophils # 0.3 10*3/uL (0.0-0.87); Eosinophils % 4.1 % (0.00-10.9); Hemoglobin 9.9 GM/DL (14.0-18.0); Immature Granulocytes % 0.3 %; Immature Granulocytes Absolute 0.02 #; Lymphocytes # 0.9 10*3/uL (1.4-4.0); Lymphocytes % 14.9 % (21.2-54.2); Mean Corpuscular Volume 97.1 FL (87-102); Mean Platelet Volume 10.2 FL (9.6-12.0); Monocytes % 12.5 % (1.7-12.7); Neutrophils % 67.5 % (38.7-73.9); Platelet Count 156 T/CUMM (130-400); Red Blood Count 3.09 MC/CUMM (3.8-5.5); White Blood Count 6.1 T/CUMM (4-12)
[2019-10-11 06:23] LABS: Calcium 8.2 MG/DL (8.5-10.1); Osmolality,Calculated 284.1 MOS/KG (273-304)
[2019-10-11] MEDS: DEXTROSE 5% NACL 0.9% 1,000 ML IV SCH (08:35)
[2019-10-11] MEDS: PANTOPRAZOLE 40 MG VIAL IV SCH (08:36)
[2019-10-11] MEDS: ENOXAPARIN 40 MG/0.4 ML SYRINGE SUBCUT SCH (08:36)
[2019-10-12 06:06] LABS: Basophils % 0.3 % (0.0-0.8); Eosinophils # 0.3 10*3/uL (0.0-0.87); Eosinophils % 4.5 % (0.00-10.9); Hemoglobin 10.2 GM/DL (14.0-18.0); Immature Granulocytes % 0.5 %; Immature Granulocytes Absolute 0.03 #; Lymphocytes # 1.3 10*3/uL (1.4-4.0); Lymphocytes % 22.1 % (21.2-54.2); Mean Corpuscular Volume 93.5 FL (87-102); Mean Platelet Volume 10.5 FL (9.6-12.0); Monocytes % 14.9 % (1.7-12.7); Neutrophils % 57.7 % (38.7-73.9); Platelet Count 174 T/CUMM (130-400); Red Blood Count 3.21 MC/CUMM (3.8-5.5); Red Cell Distribution Width 12.8 % (9.3-17.3); White Blood Count 5.8 T/CUMM (4-12)
[2019-10-12 06:21] LABS: Calcium 7.9 MG/DL (8.5-10.1)
[2019-10-12] MEDS: DICYCLOMINE 20 MG/2 ML AMP IM SCH (06:48)
[2019-10-12] MEDS: metroNIDAZOLE INJ 500 MG in PREMIX 1 EACH IV SCH (06:48)
[2019-10-12 08:11] VITALS: BP 152/71
[2019-10-12] MEDS: PANTOPRAZOLE 40 MG VIAL IV SCH (08:18)
[2019-10-12] MEDS: ENOXAPARIN 40 MG/0.4 ML SYRINGE SUBCUT SCH (08:18)
== END 2019-10-12 10:15 | disposition home or self-care (01) | DRG 389 ==
LOC: N.ED 18:27 → N.EDINP 22:50 → SUATTDRO 22:50 → N.3E 23:17
PROVIDERS: ADMIT Internal Medicine; ATTEND Family Medicine

== ENCOUNTER 2019-12-21 22:22 | Observation (INO) ==
[2019-12-21 23:39] LABS: Basophils % 0.5 % (0.0-0.8); Eosinophils # 0.1 10*3/uL (0.0-0.87); Eosinophils % 2.4 % (0.00-10.9); Hematocrit 34.8 VOL% (42.0-52.0); Hemoglobin 11.5 GM/DL (14.0-18.0); Immature Granulocytes % 0.3 %; Immature Granulocytes Absolute 0.02 #; Lymphocytes # 1.6 10*3/uL (1.4-4.0); Lymphocytes % 27.6 % (21.2-54.2); Mean Corpuscular Volume 95.3 FL (87-102); Monocytes % 10.5 % (1.7-12.7); Neutrophils % 58.7 % (38.7-73.9); Platelet Count 204 T/CUMM (130-400); Red Blood Count 3.65 MC/CUMM (3.8-5.5); Red Cell Distribution Width 13.3 % (9.3-17.3); White Blood Count 5.8 T/CUMM (4-12)
[2019-12-22 00:03] LABS: Alanine Aminotransferase 21 U/L (16-61); Albumin 3.2 G/DL (3.4-5.0); Alkaline Phosphatase 69 U/L (45-117); Aspartate Amino Transferase 26 U/L (0-37); Bilirubin,Total < 0.39 MG/DL (0.2-1.0); Blood Urea Nitrogen 9 MG/DL (7-18); Calcium 8.7 MG/DL (8.5-10.1); Estimated Glom Filtration Rate 74 ML/MIN; Glucose 104 MG/DL (74-106); Osmolality,Calculated 271.8 MOS/KG (273-304); Total Protein 7.5 G/DL (6.4-8.3)
[2019-12-22 02:03] LABS: Apearance,Urine CLEAR (Clear); Bilirubin,Urine Negative (Negative); Blood, Urine Negative (Negative); Glucose,Urine (UA) Negative (Negative); Hyaline Casts,Urine 4 /LPF (0-3); Ketones,Urine Negative (Negative); Mucus,Urine Occasional /LPF (Occasional); Nitrite,Urine Negative (Negative); Protein,Urine Negative; RBC,Urine 2 /HPF (0-4); Squamous Epithelial Cell,Urine Occasional /HPF (0-10); Urine Color Yellow (Yellow); Urine Urobilinogen < 2.0 EU/DL (0.2-1.0); WBC,Urine 4 /HPF (0-6)
[2019-12-22] MEDS ORDERED: hydrALAZINE 20 MG/1 ML VIAL IV PRN (02:23)
[2019-12-22] MEDS ORDERED: ONDANSETRON 4 MG/2 ML VIAL IV PRN (02:23)
[2019-12-22] MEDS ORDERED: ACETAMINOPHEN 325 MG TABLET PO PRN (02:23)
[2019-12-22] MEDS ORDERED: LORazepam 2 MG/1 ML VIAL IV PRN (02:43)
[2019-12-22] MEDS: SODIUM CHLORIDE 0.9% 1,000 ML IV SCH ×3 (03:12→21:13)
[2019-12-22] MEDS ORDERED: HYDROmorphone 2 MG/1 ML VIAL IV PRN (03:24)
[2019-12-22] MEDS: cefTRIAXone 1,000 MG in SYRINGE 1 EACH IV SCH (04:20)
[2019-12-22 07:29] LABS: Basophils % 0.5 % (0.0-0.8); Eosinophils # 0.1 10*3/uL (0.0-0.87); Eosinophils % 2.8 % (0.00-10.9); Hematocrit 33.8 VOL% (42.0-52.0); Hemoglobin 11.1 GM/DL (14.0-18.0); Immature Granulocytes % 0.2 %; Immature Granulocytes Absolute 0.01 #; Lymphocytes # 1.2 10*3/uL (1.4-4.0); Lymphocytes % 28.8 % (21.2-54.2); Mean Corpuscular HGB Conc 32.8 GM/DL (32-36); Mean Corpuscular Volume 94.9 FL (87-102); Mean Platelet Volume 10.4 FL (9.6-12.0); Monocytes % 9.6 % (1.7-12.7); Neutrophils % 58.1 % (38.7-73.9); Platelet Count 188 T/CUMM (130-400); Red Blood Count 3.56 MC/CUMM (3.8-5.5); Red Cell Distribution Width 13.3 % (9.3-17.3); White Blood Count 4.3 T/CUMM (4-12)
[2019-12-22 07:40] LABS: Calcium 8.3 MG/DL (8.5-10.1); Osmolality,Calculated 269.8 MOS/KG (273-304)
[2019-12-22] MEDS: PANTOPRAZOLE 40 MG VIAL IV SCH (08:01)
[2019-12-22] MEDS ORDERED: MENTHOL/ZINC OXIDE OINT 71 GM JAR TOP PRN (12:55)
[2019-12-22] MEDS ORDERED: traZODone 50 MG TABLET PO SCH (21:00)
[2019-12-22] MEDS: DOCUSATE SODIUM 100 MG CAPSULE PO SCH (21:13)
[2019-12-22] MEDS: METOCLOPRAMIDE 10 MG TABLET PO SCH (21:13)
[2019-12-22] MEDS: POLYETHYLENE GLYCOL POWDER 17 GM PACK PO SCH (21:13)
[2019-12-23] MEDS: cefTRIAXone 1,000 MG in SYRINGE 1 EACH IV SCH (04:21)
[2019-12-23] MEDS ORDERED: lisinopriL 5 MG TABLET PO SCH (09:00)
[2019-12-23] MEDS ORDERED: DOXAZOSIN 4 MG TABLET PO SCH (09:00)
[2019-12-23] MEDS ORDERED: MULTIVITAMIN (CENTRUM) TABLET PO SCH (09:00)
[2019-12-23] MEDS: PANTOPRAZOLE 40 MG VIAL IV SCH (09:25)
[2019-12-23] MEDS: POLYETHYLENE GLYCOL POWDER 17 GM PACK PO SCH (09:25)
[2019-12-23] MEDS: DOCUSATE SODIUM 100 MG CAPSULE PO SCH (09:26)
[2019-12-23] MEDS: METOCLOPRAMIDE 10 MG TABLET PO SCH (09:26)
[2019-12-23] MEDS: SODIUM CHLORIDE 0.9% 1,000 ML IV SCH (09:27)
[2019-12-23] MEDS ORDERED: LINACLOTIDE 145 MCG CAPSULE PO SCH (11:00)
[2019-12-23 11:33] VITALS: BP 128/79
== END 2019-12-23 15:08 | disposition home or self-care (01) ==
LOC: N.ED 22:22 → N.EDINP 22:22 → SUATTDRO 12-22 01:17 → N.3E 12-22 01:44
PROVIDERS: ADMIT Family Medicine; ATTEND Internal Medicine

== ENCOUNTER 2019-12-28 13:53 | Inpatient (IN) ==
[2019-12-28] MEDS ORDERED: PANTOPRAZOLE 40 MG TABLET PO SCH (15:31)
[2019-12-28] MEDS ORDERED: ACETAMINOPHEN 325 MG TABLET PO PRN (15:31)
[2019-12-28] MEDS ORDERED: ONDANSETRON 4 MG/2 ML VIAL IV PRN (15:31)
[2019-12-28] MEDS ORDERED: PROMETHAZINE 25 MG/1 ML VIAL IM PRN (15:31)
[2019-12-28 16:09] LABS: Basophils % 0.7 % (0.0-0.8); Eosinophils # 0.2 10*3/uL (0.0-0.87); Eosinophils % 3.6 % (0.00-10.9); Hematocrit 32.9 VOL% (42.0-52.0); Immature Granulocytes % 0.2 %; Immature Granulocytes Absolute 0.01 #; Lymphocytes # 1.4 10*3/uL (1.4-4.0); Lymphocytes % 30.8 % (21.2-54.2); Mean Corpuscular HGB Conc 33.4 GM/DL (32-36); Mean Corpuscular Volume 94.5 FL (87-102); Mean Platelet Volume 9.8 FL (9.6-12.0); Monocytes % 10.4 % (1.7-12.7); Neutrophils % 54.3 % (38.7-73.9); Platelet Count 185 T/CUMM (130-400); Red Blood Count 3.48 MC/CUMM (3.8-5.5); Red Cell Distribution Width 14.3 % (9.3-17.3); White Blood Count 4.4 T/CUMM (4-12)
[2019-12-28 16:28] LABS: Alanine Aminotransferase 27 U/L (16-61); Albumin 3.1 G/DL (3.4-5.0); Alkaline Phosphatase 68 U/L (45-117); Aspartate Amino Transferase 27 U/L (0-37); Bilirubin,Total < 0.39 MG/DL (0.2-1.0); Blood Urea Nitrogen 5 MG/DL (7-18); Calcium 8.3 MG/DL (8.5-10.1); Estimated Glom Filtration Rate 82 ML/MIN; Glucose 108 MG/DL (74-106); Osmolality,Calculated 263.4 MOS/KG (273-304); Total Protein 6.9 G/DL (6.4-8.3)
[2019-12-28] MEDS: DEXTROSE 5% LACTATED RINGERS 1,000 ML IV SCH (17:39)
[2019-12-29] MEDS: DEXTROSE 5% LACTATED RINGERS 1,000 ML IV SCH ×4 (00:15→18:40)
[2019-12-29 06:53] LABS: Alanine Aminotransferase 22 U/L (16-61); Albumin 2.8 G/DL (3.4-5.0); Alkaline Phosphatase 65 U/L (45-117); Aspartate Amino Transferase 20 U/L (0-37); Bilirubin,Total < 0.39 MG/DL (0.2-1.0); Blood Urea Nitrogen 5 MG/DL (7-18); Calcium 8.1 MG/DL (8.5-10.1); Estimated Glom Filtration Rate 94 ML/MIN; Glucose 101 MG/DL (74-106); Osmolality,Calculated 256.8 MOS/KG (273-304); Total Protein 6.3 G/DL (6.4-8.3)
[2019-12-29] MEDS ORDERED: MENTHOL/ZINC OXIDE OINT 71 GM JAR TOP PRN (07:26)
[2019-12-29] MEDS ORDERED: ENOXAPARIN 40 MG/0.4 ML SYRINGE SUBCUT SCH (09:00)
[2019-12-29] MEDS ORDERED: LORazepam 2 MG/1 ML VIAL IV ONE (09:35)
[2019-12-29] MEDS ORDERED: LACTATED RINGERS 1,000 ML IV SCH (11:30)
[2019-12-29] MEDS: DOXAZOSIN 4 MG TABLET PO SCH (17:44)
[2019-12-29] MEDS: lisinopriL 5 MG TABLET PO SCH (17:44)
[2019-12-29] MEDS: CEFUROXIME 500 MG TABLET PO SCH ×2 (17:46→20:16)
[2019-12-29] MEDS: DOCUSATE SODIUM 100 MG CAPSULE PO SCH ×2 (17:46→20:16)
[2019-12-29] MEDS: LINACLOTIDE 145 MCG CAPSULE PO SCH (18:10)
[2019-12-29] MEDS: CHOLECALCIFEROL 5,000 UNIT TABLET PO SCH (18:11)
[2019-12-29] MEDS: PANTOPRAZOLE 40 MG TABLET PO SCH (18:11)
[2019-12-29] MEDS: METOCLOPRAMIDE 10 MG TABLET PO SCH ×2 (18:11→20:17)
[2019-12-29] MEDS: MULTIVITAMIN (CENTRUM) TABLET PO SCH (18:11)
[2019-12-29] MEDS ORDERED: traZODone 50 MG TABLET PO SCH (21:00)
[2019-12-30 00:27] LABS: Apearance,Urine CLEAR (Clear); Bacteria,Urine Occasional /HPF (Few); Bilirubin,Urine Negative (Negative); Blood, Urine Negative (Negative); Glucose,Urine (UA) Negative (Negative); Ketones,Urine Negative (Negative); Mucus,Urine Occasional /LPF (Occasional); Nitrite,Urine Negative (Negative); Protein,Urine Negative; RBC,Urine <1 /HPF (0-4); Urine Color Straw (Yellow); Urine Specific Gravity 1.004 (1.001-1.035); Urine Urobilinogen < 2.0 EU/DL (0.2-1.0)
[2019-12-30] MEDS: DEXTROSE 5% LACTATED RINGERS 1,000 ML IV SCH (02:41)
[2019-12-30] MEDS ORDERED: propofoL 200 MG/20 ML VIAL IV ONE (09:00)
[2019-12-30] MEDS ORDERED: LIDOCAINE 2% 5 ML VIAL ONE (09:00)
[2019-12-30] MEDS: METOCLOPRAMIDE 10 MG TABLET PO SCH (09:52)
[2019-12-30] MEDS: LINACLOTIDE 145 MCG CAPSULE PO SCH (09:52)
[2019-12-30] MEDS: DOXAZOSIN 4 MG TABLET PO SCH (09:52)
[2019-12-30] MEDS: CEFUROXIME 500 MG TABLET PO SCH (09:52)
[2019-12-30] MEDS: DOCUSATE SODIUM 100 MG CAPSULE PO SCH (09:52)
[2019-12-30] MEDS: lisinopriL 5 MG TABLET PO SCH (09:52)
[2019-12-30] MEDS: MULTIVITAMIN (CENTRUM) TABLET PO SCH (09:52)
[2019-12-30] MEDS: CHOLECALCIFEROL 5,000 UNIT TABLET PO SCH (09:53)
[2019-12-30] MEDS: PANTOPRAZOLE 40 MG TABLET PO SCH (09:53)
[2019-12-30 12:28] VITALS: BP 126/80
[2019-12-30] MEDS ORDERED: SALICYLIC ACID TOP SCH (17:00)
[2019-12-30] MEDS ORDERED: SULFUR TOP SCH (17:00)
== END 2019-12-30 15:20 | disposition home or self-care (01) | DRG 391 ==
LOC: N.3E 15:17
PROVIDERS: ADMIT Surgery; ATTEND Surgery

== ENCOUNTER 2020-06-21 12:09 | Inpatient (IN) ==
[2020-06-21 14:54] LABS: Basophils % 0.4 % (0.0-0.8); Eosinophils % 0.6 % (0.00-10.9); Hematocrit 35.8 VOL% (42.0-52.0); Hemoglobin 12.1 GM/DL (14.0-18.0); Immature Granulocytes % 0.4 %; Immature Granulocytes Absolute 0.03 #; Lymphocytes # 0.7 10*3/uL (1.4-4.0); Lymphocytes % 9.4 % (21.2-54.2); Mean Corpuscular HGB Conc 33.8 GM/DL (32-36); Mean Corpuscular Volume 95.2 FL (87-102); Mean Platelet Volume 9.6 FL (9.6-12.0); Monocytes % 9.4 % (1.7-12.7); Neutrophils % 79.8 % (38.7-73.9); Platelet Count 209 T/CUMM (130-400); Red Blood Count 3.76 MC/CUMM (3.8-5.5); Red Cell Distribution Width 13.7 % (9.3-17.3)
[2020-06-21] MEDS ORDERED: LORazepam 2 MG/1 ML VIAL IV STA ×2 (15:24→16:23)
[2020-06-21 15:27] LABS: Alanine Aminotransferase 23 U/L (16-61); Albumin 3.5 G/DL (3.4-5.0); Alkaline Phosphatase 86 U/L (45-117); Aspartate Amino Transferase 15 U/L (0-37); Bilirubin,Total < 0.39 MG/DL (0.2-1.0); Blood Urea Nitrogen 15 MG/DL (7-18); Calcium 9.2 MG/DL (8.5-10.1); Carbon Dioxide 25 MMOL/L (21-32); Estimated Glom Filtration Rate 43 ML/MIN; Glucose 112 MG/DL (74-106); Osmolality,Calculated 274.8 MOS/KG (273-304); Potassium 4.1 MMOL/L (3.5-5.1); Sodium 137 MMOL/L (136-145); Total Protein 7.5 G/DL (6.4-8.3)
[2020-06-21 15:29] LABS: Bacteria,Urine Occasional /HPF (Few); Bilirubin,Urine Negative (Negative); Blood, Urine Negative (Negative); Glucose,Urine (UA) Negative (Negative); Hyaline Casts,Urine 17 /LPF (0-3); Ketones,Urine Negative (Negative); Nitrite,Urine Negative (Negative); Protein,Urine 100 MG/DL; RBC,Urine 6 /HPF (0-4); Squamous Epithelial Cell,Urine Occasional /HPF (0-10); Urine Appearance CLOUDY (Clear); Urine Color Amber (Yellow); Urine Specific Gravity 1.021 (1.001-1.035); Urine Urobilinogen < 2.0 EU/DL (0.2-1.0); WBC,Urine 11 /HPF (0-6)
[2020-06-21] MEDS ORDERED: SODIUM CHLORIDE 0.9% 2,400 ML IV ONE (15:44)
[2020-06-21] MEDS ORDERED: SODIUM CHLORIDE 0.9% 2,000 ML IV STA ×2 (15:55→16:04)
[2020-06-21] MEDS: PIPERACILLIN/TAZOBACTAM 3,375 MG in SODIUM CHLORIDE 0.9% 100 ML IV SCH (16:03)
[2020-06-21] MEDS ORDERED: DEXTROSE 50% 25 GM/50 ML VIAL IV PRN (16:34)
[2020-06-21] MEDS ORDERED: ONDANSETRON 4 MG/2 ML VIAL IV PRN (16:34)
[2020-06-21] MEDS ORDERED: GLUCAGON 1 MG VIAL IM PRN (16:34)
[2020-06-21] MEDS: SODIUM CHLORIDE 0.9% 1,000 ML IV SCH (17:49)
[2020-06-21] MEDS: HydrOXYzine PAMOATE 50 MG CAPSULE PO SCH (23:20)
[2020-06-21] MEDS: LACTULOSE 20 GM/30 ML UDCUP PO SCH (23:20)
[2020-06-21] MEDS: DOCUSATE SODIUM 100 MG CAPSULE PO SCH (23:20)
[2020-06-21] MEDS: traZODone 50 MG TABLET PO SCH (23:21)
[2020-06-21] MEDS: METOCLOPRAMIDE 10 MG TABLET PO SCH (23:21)
[2020-06-22] MEDS: PIPERACILLIN/TAZOBACTAM 3,375 MG in SODIUM CHLORIDE 0.9% 100 ML IV SCH ×4 (00:08→23:33)
[2020-06-22] MEDS ORDERED: PIPERACILLIN/TAZOBACTAM 3,375 MG in SODIUM CHLORIDE 0.9% 100 ML IV SCH (01:00)
[2020-06-22 07:14] LABS: Basophils % 0.6 % (0.0-0.8); Eosinophils # 0.2 10*3/uL (0.0-0.87); Eosinophils % 2.9 % (0.00-10.9); Hematocrit 33.1 VOL% (42.0-52.0); Immature Granulocytes % 0.2 %; Immature Granulocytes Absolute 0.01 #; Lymphocytes # 1.4 10*3/uL (1.4-4.0); Mean Corpuscular HGB Conc 33.2 GM/DL (32-36); Mean Corpuscular Volume 95.1 FL (87-102); Mean Platelet Volume 9.8 FL (9.6-12.0); Neutrophils % 58.3 % (38.7-73.9); Platelet Count 177 T/CUMM (130-400); Red Blood Count 3.48 MC/CUMM (3.8-5.5); Red Cell Distribution Width 13.5 % (9.3-17.3); White Blood Count 5.2 T/CUMM (4-12)
[2020-06-22 07:48] LABS: Albumin 2.8 G/DL (3.4-5.0); Bilirubin,Total 0.8 MG/DL (0.2-1.0); Calcium 8.1 MG/DL (8.5-10.1); Osmolality,Calculated 280.3 MOS/KG (273-304); Potassium 3.5 MMOL/L (3.5-5.1); Total Protein 6.5 G/DL (6.4-8.3)
[2020-06-22] MEDS: SODIUM CHLORIDE 0.9% 1,000 ML IV SCH ×2 (08:47→21:50)
[2020-06-22] MEDS: LACTULOSE 20 GM/30 ML UDCUP PO SCH ×2 (08:47→21:52)
[2020-06-22] MEDS: LINACLOTIDE 145 MCG CAPSULE PO SCH (08:47)
[2020-06-22] MEDS: DOCUSATE SODIUM 100 MG CAPSULE PO SCH ×2 (08:47→21:52)
[2020-06-22] MEDS: PANTOPRAZOLE 40 MG TABLET PO SCH (08:47)
[2020-06-22] MEDS: MULTIVITAMIN (CENTRUM) TABLET PO SCH (08:47)
[2020-06-22] MEDS: CHOLECALCIFEROL 5,000 UNIT TABLET PO SCH (08:48)
[2020-06-22] MEDS: METOCLOPRAMIDE 10 MG TABLET PO SCH ×2 (08:48→21:52)
[2020-06-22] MEDS ORDERED: DOXAZOSIN 4 MG TABLET PO SCH (09:00)
[2020-06-22] MEDS: HydrOXYzine PAMOATE 50 MG CAPSULE PO SCH (16:43)
[2020-06-22] MEDS: traZODone 50 MG TABLET PO SCH (21:52)
[2020-06-22] MEDS: ENOXAPARIN 40 MG/0.4 ML SYRINGE SUBCUT SCH ×2 (21:52)
[2020-06-22] MEDS: LORazepam 2 MG/1 ML VIAL IV PRN (22:39)
[2020-06-23] MEDS: LORazepam 2 MG/1 ML VIAL IV PRN ×3 (04:35→22:56)
[2020-06-23 06:04] LABS: Basophils % 0.6 % (0.0-0.8); Eosinophils # 0.2 10*3/uL (0.0-0.87); Eosinophils % 3.7 % (0.00-10.9); Hematocrit 30.5 VOL% (42.0-52.0); Hemoglobin 10.4 GM/DL (14.0-18.0); Immature Granulocytes % 0.2 %; Immature Granulocytes Absolute 0.01 #; Lymphocytes # 1.2 10*3/uL (1.4-4.0); Lymphocytes % 25.5 % (21.2-54.2); Mean Corpuscular HGB Conc 34.1 GM/DL (32-36); Mean Corpuscular Volume 93.6 FL (87-102); Mean Platelet Volume 10.4 FL (9.6-12.0); Monocytes % 11.8 % (1.7-12.7); Neutrophils % 58.2 % (38.7-73.9); Platelet Count 166 T/CUMM (130-400); Red Blood Count 3.26 MC/CUMM (3.8-5.5); Red Cell Distribution Width 13.3 % (9.3-17.3); White Blood Count 4.8 T/CUMM (4-12)
[2020-06-23 06:24] LABS: Calcium 7.8 MG/DL (8.5-10.1); Osmolality,Calculated 278.3 MOS/KG (273-304); Potassium 3.1 MMOL/L (3.5-5.1)
[2020-06-23] MEDS: LACTULOSE 20 GM/30 ML UDCUP PO SCH ×2 (08:41→21:28)
[2020-06-23] MEDS: MULTIVITAMIN (CENTRUM) TABLET PO SCH (08:41)
[2020-06-23] MEDS: PIPERACILLIN/TAZOBACTAM 3,375 MG in SODIUM CHLORIDE 0.9% 100 ML IV SCH ×3 (08:41→23:00)
[2020-06-23] MEDS: PANTOPRAZOLE 40 MG TABLET PO SCH (08:41)
[2020-06-23] MEDS: DOCUSATE SODIUM 100 MG CAPSULE PO SCH ×2 (08:42→21:28)
[2020-06-23] MEDS: METOCLOPRAMIDE 10 MG TABLET PO SCH ×2 (08:42→21:28)
[2020-06-23] MEDS: LINACLOTIDE 145 MCG CAPSULE PO SCH (08:42)
[2020-06-23] MEDS: CHOLECALCIFEROL 5,000 UNIT TABLET PO SCH (08:42)
[2020-06-23] MEDS: SODIUM CHLORIDE 0.9% 1,000 ML IV SCH ×3 (17:10→23:54)
[2020-06-23] MEDS: HydrOXYzine PAMOATE 50 MG CAPSULE PO SCH (17:11)
[2020-06-23] MEDS: ENOXAPARIN 40 MG/0.4 ML SYRINGE SUBCUT SCH (21:28)
[2020-06-23] MEDS: traZODone 50 MG TABLET PO SCH (21:28)
[2020-06-24] MEDS: PANTOPRAZOLE 40 MG TABLET PO SCH (08:26)
[2020-06-24] MEDS: LINACLOTIDE 145 MCG CAPSULE PO SCH (08:27)
[2020-06-24] MEDS: MULTIVITAMIN (CENTRUM) TABLET PO SCH (08:27)
[2020-06-24] MEDS: METOCLOPRAMIDE 10 MG TABLET PO SCH ×2 (08:27→21:18)
[2020-06-24] MEDS: LACTULOSE 20 GM/30 ML UDCUP PO SCH ×2 (08:27→21:17)
[2020-06-24] MEDS: CHOLECALCIFEROL 5,000 UNIT TABLET PO SCH (08:27)
[2020-06-24] MEDS: DOCUSATE SODIUM 100 MG CAPSULE PO SCH ×2 (08:27→21:17)
[2020-06-24] MEDS: PIPERACILLIN/TAZOBACTAM 3,375 MG in SODIUM CHLORIDE 0.9% 100 ML IV SCH ×2 (08:27→16:02)
[2020-06-24] MEDS ORDERED: POTASSIUM CHLORIDE 20 MEQ TABLET PO ONE (14:20)
[2020-06-24] MEDS: HydrOXYzine PAMOATE 50 MG CAPSULE PO SCH (16:02)
[2020-06-24] MEDS: LORazepam 2 MG/1 ML VIAL IV PRN (16:35)
[2020-06-24] MEDS: VANCOMYCIN INJ 1,000 MG in SODIUM CHLORIDE 0.9% 250 ML IV SCH (21:17)
[2020-06-24] MEDS: ENOXAPARIN 40 MG/0.4 ML SYRINGE SUBCUT SCH (21:17)
[2020-06-24] MEDS: traZODone 50 MG TABLET PO SCH (21:17)
[2020-06-24] MEDS: SODIUM CHLORIDE 0.9% 1,000 ML IV SCH (22:10)
[2020-06-25] MEDS: LORazepam 2 MG/1 ML VIAL IV PRN ×2 (00:31→10:55)
[2020-06-25] MEDS: PIPERACILLIN/TAZOBACTAM 3,375 MG in SODIUM CHLORIDE 0.9% 100 ML IV SCH ×4 (00:32→21:25)
[2020-06-25 06:02] LABS: Basophils % 0.5 % (0.0-0.8); Eosinophils # 0.3 10*3/uL (0.0-0.87); Eosinophils % 4.2 % (0.00-10.9); Hematocrit 31.9 VOL% (42.0-52.0); Immature Granulocytes % 0.3 %; Immature Granulocytes Absolute 0.02 #; Lymphocytes # 2.2 10*3/uL (1.4-4.0); Lymphocytes % 36.1 % (21.2-54.2); Mean Corpuscular HGB Conc 34.5 GM/DL (32-36); Mean Corpuscular Volume 91.4 FL (87-102); Mean Platelet Volume 10.1 FL (9.6-12.0); Monocytes % 12.9 % (1.7-12.7); Platelet Count 165 T/CUMM (130-400); Red Blood Count 3.49 MC/CUMM (3.8-5.5); Red Cell Distribution Width 12.6 % (9.3-17.3)
[2020-06-25 06:30] LABS: Eosinophils 5 % (0-10); Hypochromasia 1+; Lymphocytes 36 % (20-55); Ovalocytes Slight; Platelet Estimate Adequate; Segmented Neutrophils 48 % (50-85); Total Cells Counted 100
[2020-06-25 06:54] LABS: Calcium 8.2 MG/DL (8.5-10.1); Osmolality,Calculated 278.3 MOS/KG (273-304)
[2020-06-25] MEDS ORDERED: POTASSIUM CHLORIDE 20 MEQ TABLET PO ONE (08:30)
[2020-06-25] MEDS ORDERED: diphenhydrAMINE 50 MG/1 ML VIAL IV ONE (08:45)
[2020-06-25] MEDS: DOCUSATE SODIUM 100 MG CAPSULE PO SCH ×2 (09:39→21:26)
[2020-06-25] MEDS: CHOLECALCIFEROL 5,000 UNIT TABLET PO SCH (09:39)
[2020-06-25] MEDS: METOCLOPRAMIDE 10 MG TABLET PO SCH ×2 (09:39→21:26)
[2020-06-25] MEDS: MULTIVITAMIN (CENTRUM) TABLET PO SCH (09:39)
[2020-06-25] MEDS: LINACLOTIDE 145 MCG CAPSULE PO SCH (09:41)
[2020-06-25] MEDS: PANTOPRAZOLE 40 MG TABLET PO SCH (09:44)
[2020-06-25] MEDS: LACTULOSE 20 GM/30 ML UDCUP PO SCH ×2 (11:02→21:26)
[2020-06-25] MEDS: VANCOMYCIN INJ 1,000 MG in SODIUM CHLORIDE 0.9% 250 ML IV SCH (11:31)
[2020-06-25] MEDS ORDERED: FUROSEMIDE 40 MG/4 ML VIAL IV ONE (15:28)
[2020-06-25] MEDS: HydrOXYzine PAMOATE 50 MG CAPSULE PO SCH (18:00)
[2020-06-25] MEDS ORDERED: DOXAZOSIN 4 MG TABLET PO SCH (21:00)
[2020-06-25] MEDS: traZODone 50 MG TABLET PO SCH (21:26)
[2020-06-25] MEDS: ENOXAPARIN 40 MG/0.4 ML SYRINGE SUBCUT SCH (21:26)
[2020-06-26] MEDS: LORazepam 2 MG/1 ML VIAL IV PRN (02:52)
[2020-06-26] MEDS: PIPERACILLIN/TAZOBACTAM 3,375 MG in SODIUM CHLORIDE 0.9% 100 ML IV SCH (04:19)
[2020-06-26 08:44] LABS: Basophils % 0.8 % (0.0-0.8); Eosinophils # 0.3 10*3/uL (0.0-0.87); Eosinophils % 5.6 % (0.00-10.9); Hematocrit 36.7 VOL% (42.0-52.0); Hemoglobin 12.7 GM/DL (14.0-18.0); Immature Granulocytes % 0.2 %; Immature Granulocytes Absolute 0.01 #; Lymphocytes # 1.6 10*3/uL (1.4-4.0); Lymphocytes % 30.8 % (21.2-54.2); Mean Corpuscular HGB Conc 34.6 GM/DL (32-36); Mean Corpuscular Volume 91.5 FL (87-102); Mean Platelet Volume 10.4 FL (9.6-12.0); Monocytes % 12.3 % (1.7-12.7); Neutrophils % 50.3 % (38.7-73.9); Platelet Count 187 T/CUMM (130-400); Red Blood Count 4.01 MC/CUMM (3.8-5.5); Red Cell Distribution Width 13.1 % (9.3-17.3); White Blood Count 5.2 T/CUMM (4-12)
[2020-06-26 09:08] LABS: Calcium 8.6 MG/DL (8.5-10.1); Osmolality,Calculated 272.7 MOS/KG (273-304); Potassium 3.2 MMOL/L (3.5-5.1)
[2020-06-26] MEDS: PANTOPRAZOLE 40 MG TABLET PO SCH (09:32)
[2020-06-26] MEDS: LACTULOSE 20 GM/30 ML UDCUP PO SCH (09:32)
[2020-06-26] MEDS: MULTIVITAMIN (CENTRUM) TABLET PO SCH (09:32)
[2020-06-26] MEDS: CHOLECALCIFEROL 5,000 UNIT TABLET PO SCH (09:33)
[2020-06-26] MEDS: DOCUSATE SODIUM 100 MG CAPSULE PO SCH (09:33)
[2020-06-26] MEDS: METOCLOPRAMIDE 10 MG TABLET PO SCH (09:33)
[2020-06-26] MEDS: LINACLOTIDE 145 MCG CAPSULE PO SCH (09:36)
[2020-06-26 11:16] VITALS: BP 127/61
== END 2020-06-26 12:04 | disposition swing bed (61) | DRG 871 ==
LOC: N.ED 12:09 → N.EDINP 16:34 → N.3E 18:25
PROVIDERS: ADMIT Internal Medicine; ATTEND Internal Medicine